=== PATIENT | female | born 1940 | race Caucasian/White ===

== ENCOUNTER 2017-11-24 01:56 | Inpatient (IN) ==
[2017-11-24] MEDS ORDERED: Ondansetron ODT 4 MG TAB.RAPDIS SL PRN (03:20)
[2017-11-24] MEDS ORDERED: Naloxone 0.4 MG/ML INJ IVP PRN (03:20)
[2017-11-24 03:53] LABS: Basophils % 0.1 %; Hemoglobin 11.1 g/dL (11.5-15.4); Immature Granulocytes % 0.5 % (0-4); Lymphocytes # 0.5 K/mcL (0.6-4.6); Lymphocytes % 3.4 %; Mean Corpuscular HGB Conc 34.7 g/dL (31.6-35.5); Mean Corpuscular Hemoglobin 31.4 pg (28.0-33.3); Mean Corpuscular Volume 90.4 fL (83.0-100.0); Mean Platelet Volume 9.8 fL (9.4-12.4); Monocytes # 0.6 K/mcL (0.0-1.3); Monocytes % 4.6 %; Neutrophils # 12.3 K/mcL (1.6-8.9); Platelet Count 227 K/mcL (140-400); Red Blood Count 3.54 M/mcL (3.82-4.97); Segmented Neutrophils % 91.4 %
--- NOTE | 2017-11-24 03:59 | Internal Med History&Physical ---
<Galen Gruber - Last Filed: 11/24/17 06:06> Date of Encounter: 11/24/17 Time of Encounter: 02:00 Assessment and Plan (1) Elevated troponin I level Current visit: Yes Status: Acute NSTEMI vs renal disease Cardiology consulted Patient started on heparin drip Cardiac Monitoring and pulse oximetry Echo ordered Troponin downtrending compared with [place] (0.192 to 0.170) Will monitor (2) CHF (congestive heart failure) Current visit: Yes Status: Acute Elevated BNP Echo Ordered Home lasix restarted Qualifiers: Congestive heart failure type: unspecified Congestive heart failure chronicity: unspecified Qualified Code(s): I50.9 - Heart failure, unspecified (3) HTN (hypertension) Current visit: Yes Status: Acute Controlled Continue home medications Qualifiers: Hypertension type: essential hypertension Qualified Code(s): I10 - Essential (primary) hypertension (4) HLD (hyperlipidemia) Current visit: Yes Status: Acute Patient with documented adverse reaction to statins Qualifiers: Hyperlipidemia type: unspecified Qualified Code(s): E78.5 - Hyperlipidemia , unspecified (5) GERD (gastroesophageal reflux disease) Current visit: Yes Status: Acute Stable Continue home medication Qualifiers: Esophagitis presence: esophagitis presence not specified Qualified Code(s) : K21.9 - Gastro-esophageal reflux disease without esophagitis (6) COPD (chronic obstructive pulmonary disease) Current visit: Yes Status: Acute Stable No signs of acute exacerbation Will monitor Qualifiers: COPD type: unspecified COPD Qualified Code(s): J44.9 - Chronic obstructive pulmonary disease, unspecified (7) History of MN (myocardial infarction) Current visit: Yes Status: Acute (8) S/P coronary artery stent placement Current visit: Yes Status: Acute (9) Tobacco use disorder, moderate, in sustained remission Current visit: Yes Status: Acute Quit smoking in 2002 (10) Leukocytosis Current visit: Yes Status: Acute Mild elevation is downtrending 15.0 at [place] last night 13.5 this morning No other signs of infection currently, likely reactive Will monitor Qualifiers: Leukocytosis type: unspecified Qualified Code(s): D72.829 - Elevated white blood cell count, unspecified (11) Elevated serum creatinine Current visit: Yes Status: Acute Patient admits to recent "kidney problems," but is unsure of details further than this We do not have past values of Cr to compare against (12) DVT prophylaxis Current visit: Yes Status: Acute On Heparin Drip Internal Medicine - H&P: HPI Chief complaint: Shortness of breath Admitted From: Hospital to Hospital Transfer Plans for Post Hospital Care: Home History of present illness: Ms. Coleman is a 77 year old female who presented to [facility] with "maybe 2 weeks" of increasing shortness of breath. The patient, though oriented x3, is a poor historian and admits that she is unsure of what made her present to the ER at [facility] in the first place. She denies any chest, jaw, or arm pain. She denies palpitations. She endorses diaphoresis. She admits a cough productive of a "thick, white" sputum. She denies fever and chills. The patient's tab cutter is Dr. Carr, and when the patient was found to have an elevated troponin at [facility], she transfered to [facility]. Other lab findings from [facility] include: Na 129, K 2.6, Cl 83, HCO3 34, BUN 17.0, Cr 1.34, Glu 146 WBC 15.0, Hgb 12.6, Plt 213 Lactic Acid 1.8 Troponin 0.196 BNP 7230 CXR revealed cardiomegaly with pulmonary edema. Past medical history significant for two MIs in the past 5 years treated with PCI, HTN, HLD, COPD, asthma, hypothyroidism, and GERD. Past Med Surg Social Fam HX - Past Medical History Medical history: asthma, COPD, GERD, hyperlipidemia, hypertension, myocardial infarction, thyroid disease Psychiatric history: no psych history - Past Surgical History Surgical History: appendectomy, cholecystectomy, hysterectomy - Social History Smoking Status: Former smoker Smokeless Tobacco Status: No Alcohol use: none, rarely Drug use: none Internal Medicine - H&P: Meds Albuterol Sulfate [Proair Hfa] 2 puff DAILY 11/24/17 [History] Allopurinol 300 mg PO DAILY 11/24/17 [History] Amlodipine Besylate [Amlodipine Besylate] 5 mg PO DAILY 11/24/17 [History] Aspirin [Lo-Dose Aspirin EC] 81 mg PO DAILY 11/24/17 [History] Cetirizine HCl [Zyrtec] 10 mg PO DAILY 11/24/17 [History] Ciprofloxacin [Cipro] 500 mg PO 11/24/17 [History] Furosemide [Lasix] 40 mg PO BID 11/24/17 [History] Levothyroxine [Synthroid] 100 mcg PO DAILY 11/24/17 [History] Lutein/Zeaxanthin [Lutein-Zeaxanthin 25-5 mg Sfgl] 15 mg PO DAILY 11/24/17 [ History] Nitroglycerin [Nitrostat] 0.4 mg PO PRN PRN 11/24/17 [History] Potassium Chloride [Klor-Con 10] 10 mg PO DAILY 11/24/17 [History] Telmisartan [Micardis] 80 mg PO 11/24/17 [History] 3 Allergy/AdvReac Type Severity Reaction Status Date / Time [id number] Reductase AdvReac Muscle Pain Verified 06/26/17 13:18 Inhibitor [Statins] All Systems PM: A 10-system review of systems was performed and is negative for pertinent findings except as documented above in the HPI. Review of systems: As per HPI - Constitutional Vitals: Temp Pulse Resp BP Pulse Ox 98.6 F 73 18 126/79 92 11/24/17 02:06 11/24/17 02:06 11/24/17 02:06 11/24/17 02:06 11/24/17 03:30 General appearance: Present: cooperative, A&O X 3, pleasant, no acute distress, obese, answers questions appropriately - Head Head exam: Present: atraumatic, normal inspection, normocephalic - ENT ENT exam: Present: mucous membranes dry - Neck Neck exam general surgery: Present: trachea midline - Respiratory Respiratory exam: Present: rales. Absent: accessory muscle use, respiratory distress, rhonchi, wheezes - Cardiovascular Cardiovascular exam: Present: RRR, +S1, +S2 - GI/Abdominal GI/Abdominal exam: Present: soft, no peritoneal signs - Extremities Exam Extremities exam: Present: pedal edema (trace) - Neurological Exam Neurological exam: Present: alert, oriented X3 - Psychiatric Psychiatric exam: Present: normal affect, normal mood. Absent: agitated, anxious - Skin Skin exam: Present: dry, warm Internal Med - H&P Results - Labs CBC & Chem 7: 11/24/17 03:36 11/24/17 03:36 <Priya Shah - Last Filed: 01/29/18 06:35> Date of Encounter: 11/24/17 Time of Encounter: 03:00 Internal Medicine - H&P: HPI History of present illness: Ms. Coleman is a 77 year old female All Systems PM: A 10-system review of systems was performed and is negative for pertinent findings except as documented above in the HPI. - Constitutional Vitals: Temp Pulse Resp BP Pulse Ox 98.6 F 73 18 126/79 92 11/24/17 02:06 11/24/17 02:06 11/24/17 02:06 11/24/17 02:06 11/24/17 03:30 Internal Med - H&P Results - Labs CBC & Chem 7: 11/24/17 03:36 11/24/17 03:36 Labs: Short CBC 11/24/17 Range/Units 03:36 WBC 13.5 H (4.3-11.1) K/mcL Hgb 11.1 L (11.5-15.4) g/dL Hct 32.0 L (35.3-44.9) % Plt Count 227 (140-400) K/mcL Neutrophils # 12.3 H (1.6-8.9) K/mcL BMP 11/24/17 03:36 Sodium 130 L Potassium 2.8 L Chloride 89 L Carbon Dioxide 27 BUN 18 Creatinine 1.27 H Glucose 196 H Calcium 8.8 Cardiac Enzymes 11/24/17 Range/Units 03:36 Troponin I 0.17 H* (< 0.04) ng/mL - Attending Attestation I examined this patient and my medical decision-making was reviewed with the Resident Physician, Galen Gruber. I agree with the documented findings, disposition and treatment plan as described with any changes set forth below. 77-year-old female patient with history of hypertension, congestive heart failure, hyperlipidemia, gastroesophageal reflux disease, COPD and coronary artery disease presented to the ER at [facility] with complaints of shortness of breath that have been going on for about 2 weeks with progressive worsening. She has also noticed increased swelling in her arms and legs. She denies any chest pain or palpitations. She does have cough that is productive of whitish sputum. On examination, patient has mild bilateral lower extremity edema. She is hypoxic. Normal S1 and S2. Bilateral crackles present. Labs show sodium of 129, potassium of 2.6, WBC of 15 and BNP of 7230. Creatinine of 1.34. Troponin of 0.19. Acute hypoxic respiratory failure: Patient with hypoxia requiring O2 supplementation. We will treat with O2 supplementation and treat underlying conditions. Acute on chronic CHF: We will get 2-D echocardiogram. Patient has elevated BNP and bilateral pedal edema. Will treat with intravenous Lasix. Fluid restriction and monitor vital signs closely. Daily weights. Elevated troponin: Trend troponins. Consult cardiology. We will follow their recommendations. Patient may require treatment for possible non-ST elevation MN depending on her troponin trend. COPD: We will treat with bronchodilators as needed. Chronic kidney disease stage III: Given acute CHF and use of Lasix expect worsening of renal function. Will monitor closely. Hyponatremia: Unknown baseline. Will monitor for now. Hypokalemia: We will replace intravenously and orally. Hypothyroidism: Will check TSH level.
[2017-11-24] MEDS ORDERED: Ipratropium/Albuterol Neb 3 ML IH PRN (04:21)
[2017-11-24 05:17] LABS: Calcium 8.8 mg/dL (8.6-10.3); Potassium 2.8 mEq/L (3.5-5.1)
[2017-11-24] MEDS ORDERED: *HR* Heparin 5,000 UNIT/ML VIAL IVP PRN ×2 (05:38)
[2017-11-24] MEDS ORDERED: *HR* Heparin 5,000 UNIT/ML VIAL IVP ONE (05:38)
[2017-11-24] MEDS ORDERED: Heparin 25,000 UNIT/500 ML D5W 25,000 UNIT/500 ML BAG IVC SCH (05:45)
[2017-11-24] MEDS ORDERED: Potassium Chloride 40 MEQ, Lidocaine 1% 2 ML in D5% in Water 500 ML IVPB ONE (06:32)
[2017-11-24 06:39] LABS: Hematocrit 31.7 % (35.3-44.9); Hemoglobin 10.7 g/dL (11.5-15.4); Mean Corpuscular HGB Conc 33.8 g/dL (31.6-35.5); Mean Corpuscular Hemoglobin 30.7 pg (28.0-33.3); Mean Corpuscular Volume 91.1 fL (83.0-100.0); Mean Platelet Volume 10.1 fL (9.4-12.4); Platelet Count 244 K/mcL (140-400); Red Blood Count 3.48 M/mcL (3.82-4.97)
[2017-11-24 07:03] LABS: INR 1.4; Prothrombin Time 14.9 Seconds (9.4-12.1)
[2017-11-24 07:06] LABS: Activated Partial Thrombo Time 26.9 Seconds (26.0-36.0)
[2017-11-24] MEDS: Furosemide 40 MG/4 ML VIAL IVP SCH ×2 (08:10→16:04)
[2017-11-24] MEDS: Loratadine 10 MG TABLET PO SCH (08:10)
[2017-11-24] MEDS: Aspirin Enteric Coated 81 MG Tablet PO SCH (08:10)
[2017-11-24] MEDS: Ipratropium/Albuterol Neb 3 ML IH SCH ×4 (08:12→20:15)
[2017-11-24] MEDS: amLODIPine 5 MG TABLET PO SCH (08:18)
--- NOTE | 2017-11-24 10:17 | Cardiology Consult Note ---
Date of Encounter: 11/24/17 Time of Encounter: 10:06 Assessment and Plan (1) Elevated troponin I level Current Visit: Yes Status: Acute Patient's initial troponin 0.17, second set 0.12 at 9 AM this morning. -Likely demand ischemia secondary to fluid status. Troponins flat and adymic. -Follow-up echocardiogram. -Continue to trend troponins. -Medical records requested from [facility]. (2) Acute exacerbation of CHF (congestive heart failure) Current Visit: Yes Status: Acute Awaiting echocardiogram. -Continue IV diuresis, MP, daily weights, and fluid restriction. -[facility] medical record request. Qualifiers: Congestive heart failure type: unspecified Qualified Code(s): I50.9 - Heart failure, unspecified (3) History of [place] (myocardial infarction) Current Visit: Yes Status: Acute Patient with h/o [address] Carr. Has had to cancel last several apointments. -[facility] 08/31/2014- circuflex stent ARY -[facility] 01/13/2014- obtuse marginal DEC -[employer] with stent of left subclavian artery stenosis 07/15/2015 -Left side carotid 2005, RCA DEC 10/27/2013 -Continue to optimize medical management -[facility] medical record request. (4) S/P coronary artery stent placement Current Visit: Yes Status: Acute -[facility] 08/31/2014- circuflex stent ARY -[facility] 01/13/2014- obtuse marginal DEC -Continue to optimize medical management. -[facility] medical record request. Discussion w patient/family: The assessment and plan as outlined above was discussed with the patient and/or family members who expressed understanding and agreement. All questions were answered. Thank you for involving us in the care of your patient. Please call with any questions. History of Present Illness Consult date: 11/24/17 Requesting physician: Priya Shah Consult reason: Elevated troponin/acute exacerbation CHF Chief complaint: Dyspnea History of present illness: Ms. Coleman is a 77 year old female with PMHx of HTN, CHF, HLD, GERD, COPD, thyroid disease, and CAD who presented to [facility] with complaints of SOB for 2 weeks, right arm swelling, and decreased appetite for 4 days. She reported orthopnea and worsening of her shortness of breath. She denied chest pain, chest pressure, arm or neck pain, nausea, yet reported mild diaphoresis. She also reported a cough which was productive of white sputum. Upon arrival to [facility], she was hypoxic with mild bilateral lower extremity edema. She was found to have bilateral crackles. She was found to by hyponatremic, hypokalemic, with a WBC of 15 and BNP of 7230, creatinine of 1.34, and troponin of 0.19. Patient was initially started her on supplemental oxygen, IV diuresis, fluid restriction , and bronchodilators. Electrolyte replacement was initiated. Cardiology was consulted as well as 2-D echocardiogram with trending of troponins. This morning, patient is resting comfortably in no acute distress with her at the bedside. She states she is a patient of Dr. Carr and reports having multiple stents placed in her heart in the past. She corroborates use of home nitrates, beta ginna, lasix, ASA, amlodipine, and telmisartan. She also reports non-compliance with statins secondary to myalgias. Past Med Surg Social Fam HX - Past Medical History Attestation: Yes The following information was validated with the patient. Source: patient, old records reviewed Medical history: asthma, COPD, GERD, hyperlipidemia, hypertension, myocardial infarction, thyroid disease Psychiatric history: no psych history - Past Surgical History Surgical History: appendectomy, cholecystectomy, hysterectomy - Social History Smoking Status: Former smoker Smokeless Tobacco Status: No Alcohol use: none, rarely Drug use: none Medications and Allergies Albuterol Sulfate [Proair Hfa] 2 puff DAILY 11/24/17 [History] Allopurinol [Zyloprim] 300 mg PO DAILY 11/24/17 [History] Amlodipine Besylate [Amlodipine Besylate] 5 mg PO DAILY 11/24/17 [History] Aspirin [Lo-Dose Aspirin EC] 81 mg PO DAILY 11/24/17 [History] Cetirizine HCl [Zyrtec] 10 mg PO DAILY 11/24/17 [History] Ciprofloxacin [Cipro] 500 mg PO 11/24/17 [History] Furosemide [Lasix] 40 mg PO BID 11/24/17 [History] Levothyroxine [Synthroid] 100 mcg PO DAILY 11/24/17 [History] Lutein/Zeaxanthin [Lutein-Zeaxanthin 25-5 mg Sfgl] 15 mg PO DAILY 11/24/17 [ History] Metoprolol Tartrate [Lopressor] 50 mg PO DAILY 11/24/17 [History] Nitroglycerin [Nitrostat] 0.4 mg PO PRN PRN 11/24/17 [History] Potassium Chloride [Klor-Con 10] 10 mg PO DAILY 11/24/17 [History] Telmisartan [Micardis] 80 mg PO DAILY 11/24/17 [History] 3 Allergy/AdvReac Type Severity Reaction Status Date / Time Gawneyz-Oss-Sza Reductase AdvReac Muscle Pain Verified 06/26/17 13:18 Inhibitor [Statins] All Systems Review: A 10-system review of systems was performed and is negative for pertinent findings except as documented above in the HPI. - Constitutional Constitutional: anorexia (4 ays), no fever(s), no frequent falls, no headache(s) , no stops breathing during sleep - Cardiovascular Cardiovascular: diaphoresis, dyspnea at rest, dyspnea on exertion, leg edema, no chest pain at rest, no chest pain with exertion, no claudication, no irregular heart rhythm, no radiating jaw, neck or arm pain, no lightheadedness, no palpitations, no paroxysmal nocturnal dyspnea, no rapid heart rate - Respiratory Respiratory: cough, other (sputum) - Gastrointestinal Gastrointestinal: no abdominal pain, no coffee ground emesis, no constipation, no diarrhea, no hematemesis, no hematochezia, no melena, no nausea - Genitourinary Genitourinary: no dysuria - Integumentary Integumentary: no erythema - Neurological Neurological: no dizziness, no focal weakness Physical Examination Vital Signs, Last 4 Hours Temp Pulse Resp BP Pulse Ox 11/24/17 08:13 14 96 11/24/17 06:44 97.8 F 70 14 113/50 96 General: Conversant, No Apparent Distress HEENT: Atraumatic, Normocephaly, Mucus Membranes Moist Neck: No JVD, Normal carotid pulses Cardiac: Reg Rate and Rhythm, Normal S1 and S2, No Murmur Lungs: Other (moderate crackles bilaterally) Neuro: Alert and responsive, No focal deficits noted Abdomen: Soft, Non-Tender Skin: No rashes noted on visualized skin Musculoskeletal: No Chest Wall Tenderness Extremities: No Clubbing, No Cyanosis, No Edema, Normal Pulses Results 11/24/17 05:47 11/24/17 03:36 Lab Results 11/24/17 11/24/1718 03:36 03:36 03:36 WBC 13.5 H Hgb 11.1 L Hct 32.0 L Plt Count 227 INR APTT Sodium 130 L Potassium 2.8 L Chloride 89 L Carbon Dioxide 27 BUN 18 Creatinine 1.27 H Glucose 196 H Calcium 8.8 Troponin I 0.17 H* TSH 11/24/17 11/24/17 11/24/17 03:36 05:47 05:47 WBC 10.7 Hgb 10.7 L Hct 31.7 L Plt Count 244 INR 1.4 APTT 26.9 Sodium Potassium Chloride Carbon Dioxide BUN Creatinine Glucose Calcium Troponin I TSH 0.865 11/24/17 09:08 WBC Hgb Hct Plt Count INR APTT Sodium Potassium Chloride Carbon Dioxide BUN Creatinine Glucose Calcium Troponin I 0.12 H* TSH Consult Discharge Plan - Plan Referrals: Ramy Tellez DO [Primary Care Provider] -
--- NOTE | 2017-11-24 23:12 | Event Note ---
Date of Encounter: 11/24/17 Time of Encounter: 13:09 Patient transferred from [place] for dyspnea, increased troponin and cough. History of [place] and hypertension. Patient admitted and started on heparin drip with cardiac monitoring. Currently she has no complaints for me. Denies chest pain. Has c/o SOB right now, slightly improved. VS: reviewed, on 2 L nasal cannula unremarkable. Physical exam: no acute distress, there are rales at both lung bases with scattered wheezes throughout. No extremity edema. Labs reviewed: troponin 0.19 now 0.17, Sodium 129 now 120, BNP 7,000, WBC now wnl at 10. Potassium very low at 2.8. 1) Elevated troponin level: Will discontinue heparin drip per Cardiology recs F/U TTE 2) CHF continue diuresis, creatinine monitoring, I/Os, daily weights. Records from [facility] office to be obtained. 3) Hypokalemia Currently getting IV Lasix, getting replaced with IV and now will repalce with PO and recheck. Also check mag level.
[2017-11-24] MEDS: Melatonin 3 MG TABLET PO SCH (23:47)
[2017-11-25] MEDS: Ipratropium/Albuterol Neb 3 ML IH SCH ×6 (00:08→21:16)
[2017-11-25 05:46] LABS: Basophils % 0.1 %; Hematocrit 29.1 % (35.3-44.9); Hemoglobin 10.2 g/dL (11.5-15.4); Immature Granulocytes % 0.6 % (0-4); Lymphocytes # 0.9 K/mcL (0.6-4.6); Lymphocytes % 4.2 %; Mean Corpuscular HGB Conc 35.1 g/dL (31.6-35.5); Mean Corpuscular Volume 88.4 fL (83.0-100.0); Mean Platelet Volume 10.2 fL (9.4-12.4); Monocytes % 7.2 %; Neutrophils # 18.8 K/mcL (1.6-8.9); Platelet Count 263 K/mcL (140-400); Red Blood Count 3.29 M/mcL (3.82-4.97); Red Cell Distribution Width 13.6 % (11.5-14.5); Segmented Neutrophils % 87.9 %
[2017-11-25 05:51] LABS: Monocytes # 1.5 K/mcL (0.0-1.3)
[2017-11-25 06:14] LABS: Calcium 8.5 mg/dL (8.6-10.3); Potassium 3.6 mEq/L (3.5-5.1)
--- NOTE | 2017-11-25 08:22 | Cardiology Progress Note ---
Date of Encounter: 11/25/17 Time of Encounter: 08:20 Assessment and Plan (1) Elevated troponin I level Current Visit: Yes Status: Acute [facility], [facility].12 yester[facility]. -Likely demand ischemia secondary to fluid status or renal function. Troponins flat and adymic. -Follow-up echocardiogram. -If no changes in echocardiogram, will discuss with Dr. Lozano if cardiology is to sign off. (2) Acute exacerbation of CHF (congestive heart failure) Current Visit: Yes Status: Acute Awaiting echocardiogram. -Continue IV diuresis, I&O, daily weights, and fluid restriction. -Patient with considerable CAD history. Will compare this history obtained from [facility] to echocardiogram here once results are available. Qualifiers: Congestive heart failure type: unspecified Qualified Code(s): I50.9 - Heart failure, unspecified (3) History of [place] (myocardial infarction) Current Visit: Yes Status: Acute Patient with h/o [address] Carr. Has had to cancel last several apointments. -[facility] 11/05/2013- RCA-ARY- moderate diffuse CAD, EF 55% -[facility] 01/13/2014- obtuse marginal ARY, circulflex ARY -[facility] 08/31/2014-moderate disease mid LAD [id number]%), medical treatment recommendations and risk factor modification -[facility] 06/16/2016- moderate stenosis distal LAD, no change from previous studies, EF 55% -[employer] with stent of left subclavian artery stenosis 03/14/2015 -Left side carotid 2005, RCA ARY 10/27/2013 -Continue to optimize medical management (4) S/P coronary artery stent placement Current Visit: Yes Status: Acute -[facility] 11/05/2013- RCA-ARY- moderate diffuse CAD, EF 55% -[facility] 01/13/2014- obtuse marginal ARY, circulflex ARY -[facility] 08/31/2014-moderate disease mid LAD [id number]%), medical treatment recommendations and risk factor modification -[facility] 06/16/2016- moderate stenosis distal LAD, no change from previous studies, EF 55% -Continue to optimize medical management. Discussion w patient/family: The assessment and plan as outlined above was discussed with the patient and/or family members who expressed understanding and agreement. All questions were answered. Thank you for involving us in the care of your patient. Please call with any questions. Subjective Principal diagnosis: Acute exacerbation of CHF Interval history: Ms. Coleman is a 77 yo female with PMHx of HTN, CHF, HLD, GERD, COPD, thyroid disease, and CAD who is currently being treated for acute exacerbation of CHF, hospital day 2. This morning, patient was short of breath, but just moved from chair to bed. Her vitals have remained stable overnight. She states she feels chest pressure which she now states she has had for 4 days. Patient is easily confused, poor historian. 4 liters NC. Objective Vital Signs, Last 4 Hours Temp Pulse Resp BP Pulse Ox 11/25/17 07:04 24 96 11/25/17 06:30 97.8 F 92 15 130/68 94 General: Conversant, No Apparent Distress HEENT: Atraumatic, Normocephaly, Mucus Membranes Moist Cardiac: Reg Rate and Rhythm, Normal S1 and S2 Lungs: Other (wheezes bilaterally, bilateral crackles at bases) Neuro: Alert and responsive, No focal deficits noted Abdomen: Soft, Non-Tender Skin: No rashes noted on visualized skin Musculoskeletal: No Chest Wall Tenderness Extremities: No Clubbing, No Cyanosis, No Edema Results 11/25/17 04:56 11/25/17 04:56 Lab Results 11/24/17 11/24/17 11/24/17 09:08 13:50 22:00 WBC Hgb Hct Plt Count APTT 47.0 H D 51.9 H Sodium Potassium Chloride Carbon Dioxide BUN Creatinine Glucose Calcium Troponin I 0.12 H* 11/25/17 11/25/17 04:56 04:56 WBC 21.4 H D Hgb 10.2 L Hct 29.1 L Plt Count 263 APTT Sodium 123 L Potassium 3.6 Chloride 87 L Carbon Dioxide 26 BUN 31 H Creatinine 1.41 H Glucose 189 H Calcium 8.5 L Troponin I - VTE Documentation of Mechanical Device: Graduated compression elastic hosiery Consult Discharge Plan - Plan Referrals: Ramy Tellez DO [Primary Care Provider] -
[2017-11-25] MEDS: Aspirin Enteric Coated 81 MG Tablet PO SCH (08:42)
[2017-11-25] MEDS: Loratadine 10 MG TABLET PO SCH (08:42)
[2017-11-25] MEDS: amLODIPine 5 MG TABLET PO SCH (08:42)
[2017-11-25] MEDS: Furosemide 40 MG/4 ML VIAL IVP SCH (08:43)
[2017-11-25] MEDS ORDERED: Acetaminophen 325 MG TABLET PO ONE (11:44)
[2017-11-25 14:54] LABS: Sodium, Urine 18.7 mEq/L
[2017-11-25] MEDS: Metoprolol XL (24 HR) Succ 50 MG TAB.ER.24H PO SCH (15:27)
[2017-11-25] MEDS: *HR* Heparin 5,000 UNIT/ML VIAL SQ SCH ×2 (15:27→23:19)
--- NOTE | 2017-11-25 15:31 | Internal Med Progress Note ---
Addendum entered and electronically signed by Fabio Ramsay, DO 11/25 15:55: Hyponatremia: sodium went from 130 to 123 in the setting of IV diuresis. We will hold IV Lasix switched to by mouth home dose. Patient asymptomatic continue to monitor with a.m. labs. Leukocytosis elevated WBC of 21, patient denies any fevers, chills, burning with urination, discomfort or pains.no obvious signs of infection. Will obtain urine culture with recent history of UTI. BILL: Patient demonstrates elevation in creatinine from 1.2 to 1.41, no previous creatinines to compare. Elevation in the setting of diastolic heart failure and IV diuresis. We will switch to by mouth diuresis continue to monitor with a.m. labs. Avoid nephrotoxic medications are renally dose antibiotics Original Note: <Fabio Ramsay - Last Filed: 11/25/17 15:29> Date of Encounter: 11/25/17 Time of Encounter: 09:00 - Assessment and plan (1) Diastolic dysfunction with acute on chronic heart failure Current Visit: Yes Status: Acute Assessment and plan: Patient transferred from outside facility with BNP greater than 7000, pulmonary edema, patient complains of orthopnea and dyspnea with activity increased oxygen demand requiring nasal cannula oxygen at 4 L, clinical exam demonstrates findings of volume overload. Follow up BNP 411 Echocardiogram completed 11/24/2017 Impressions: Frequent atrial ectopy. LVEF 65%. Indeterminate diastolic dysfunction. Normal right ventricular structure and function. Mild-moderate mitral regurgitation. Mild-moderate tricuspid regurgitation. Moderate pulmonary hypertension. Plan: -Tolerating weaning of oxygen, continue to wean oxygen as tolerated. - Switch to PO Lasix 40 BID - Daily weights - 2 g sodium restriction, 1.5 L fluid restrictions - Optimize cardiac medications (2) HTN (hypertension) Current Visit: Yes Status: Acute Assessment and plan: Known history of hypertension currently on amlodipine 5 mg by mouth daily, metoprolol succinate 50 mg by mouth daily with blood pressure currently controlled. - Continue current regimen monitor. Qualifiers: Hypertension type: essential hypertension Qualified Code(s): I10 - Essential (primary) hypertension (3) S/P coronary artery stent placement Current Visit: Yes Status: Acute Assessment and plan: Patient has known coronary artery disease -[facility] 11/05/2013- RCA-ARY- moderate diffuse CAD, EF 55% -[facility] 01/13/2014- obtuse marginal ARY, circulflex ARY -[facility] 08/31/2014-moderate disease mid LAD [id number]%), medical treatment recommendations and risk factor modification -[facility] 06/16/2016- moderate stenosis distal LAD, no change from previous studies, EF 55% Patient follows with Dr. Carr in the outpatient setting. (4) Elevated troponin I level Current Visit: Yes Status: Acute Assessment and plan: Troponins 0.17, 0.12, 0.41 - Significant history of ACS with multiple stents in the past. Cardiology was following, will ask to see the patient again as her troponins are trending upwards. - Patient may require LHC. (5) DVT prophylaxis Current Visit: Yes Status: Acute Assessment and plan: Subcutaneous heparin. - Subjective Interval history: Mrs. Coleman has been seeing a dietitian bedside this morning. She is sitting up in a chair tolerating breakfast denies any complaints at this time. She states that the swelling in her lower extremity has improved her breathing is improved but she still requires nasal cannula oxygen which she does not use at home. She continues to have difficulty with laying flat and says she needs to elevate the head of her better pillows behind her back. She is more short of breath with ambulation and activity. With regards to asking questions of her medical history she is a poor historian. - Constitutional Vitals: Temp Pulse Resp BP Pulse Ox 97.7 F 91 14 140/74 95 11/25/17 15:16 11/25/17 15:16 11/25/17 15:16 11/25/17 15:16 11/25/17 15:16 General appearance: Present: cooperative, A&O X 3, pleasant, no acute distress, obese, answers questions appropriately Exam: General: Patient alert, awake, oriented 3, interactive, in no acute distress HEENT: Normocephalic, atraumatic, pupils equal reactive to light, , oral mucosa moist, neck supple trachea midline no palpable lymphadenopathy, no thyromegaly. Chest: Symmetric bilateral correlating with respiratory effort, effort nonlabored. Cardiac: Tachycardia, no bruits appreciated bilateral carotids, Radial pulses 2 + bilateral, posterior tibial and dorsal pedal pulses 2+ bilateral. Respiratory: Clear to auscultation all lung watkins Abdomen: Soft, nontender, positive bowel sounds, no palpable masses appreciated on examination Extremities: Symmetric bilateral, bilateral lower extremities with trace edema patient moving all 4 extremities spontaneously. Neurologic: No focal deficits appreciated on examination. Face symmetric, muscle strength symmetric bilateral upper and lower extremities. Internal Medicine: Result - Labs CBC & Chem 7: 11/25/17 04:56 11/25/17 04:56 Labs: Short CBC 11/25/17 Range/Units 04:56 WBC 21.4 H D (4.3-11.1) K/mcL Hgb 10.2 L (11.5-15.4) g/dL Hct 29.1 L (35.3-44.9) % Plt Count 263 (140-400) K/mcL Neutrophils # 18.8 H (1.6-8.9) K/mcL BMP 11/25/17 04:56 Sodium 123 L Potassium 3.6 Chloride 87 L Carbon Dioxide 26 BUN 31 H Creatinine 1.41 H Glucose 189 H Calcium 8.5 L - ABG Interpretation ABG results: PT/INR, D-dimer PT 14.9 Seconds (9.4-12.1) H 11/24/17 05:47 - Impressions Impressions Echocardiogram 11/24/17 04:22 Impressions: Frequent atrial ectopy. LVEF 65%. Indeterminate diastolic dysfunction. Normal right ventricular structure and function. Mild-moderate mitral regurgitation. Mild-moderate tricuspid regurgitation. Moderate pulmonary hypertension. Left Ventricular Wall Motion: Rest Echo Findings All wall segments showed normal motion. Findings: Study Quality * Technically adequate exam. ECG Findings * Sinus tachycardia. Left Ventricle * LVEF 65%. * Normal LV chamber size, wall thickness and function. * Indeterminate diastolic dysfunction. Valsalva was not performed. Right Ventricle * Normal right ventricular structure and function. Left Atrium * Severely dilated left atrium. Right Atrium * Normal right atrial size. Mitral Valve * Normal mitral valve structure. * No mitral stenosis. * Mild mitral annular calcification * Mild-moderate mitral regurgitation. Aortic Valve * No aortic regurgitation. * Aortic valve not well visualized. * No aortic stenosis. Tricuspid Valve * Normal tricuspid valve structure. * Mild-moderate tricuspid regurgitation. * Estimated RA pressure is 3 mmHg. * Estimated RVSP is 53 mmHg. * Moderate pulmonary hypertension. Pulmonic Valve * Pulmonic valve is not well visualized. * No pulmonic stenosis. * Trace pulmonic regurgitation. Pulmonary Artery * Pulmonary artery not well visualized. Aorta * Not well visualized. Pericardium * There is no pericardial effusion present. Interatrial Septum * No evidence of PFO by color Doppler. IVC * Normal IVC dimensions and inspiratory collapse. - VTE Documentation of Mechanical Device: Graduated compression elastic hosiery Consult Discharge Plan - Plan Referrals: Ramy Tellez DO [Primary Care Provider] - <Kayden Mcallister - Last Filed: 11/25/17 17:52> Date of Encounter: 11/25/17 - Constitutional Vitals: Temp Pulse Resp BP Pulse Ox 97.7 F 91 14 140/74 95 11/25/17 15:16 11/25/17 15:16 11/25/17 15:16 11/25/17 15:16 11/25/17 15:16 Internal Medicine: Result - Labs CBC & Chem 7: 11/25/17 04:56 11/25/17 04:56 Labs: Short CBC 11/25/17 Range/Units 04:56 WBC 21.4 H D (4.3-11.1) K/mcL Hgb 10.2 L (11.5-15.4) g/dL Hct 29.1 L (35.3-44.9) % Plt Count 263 (140-400) K/mcL Neutrophils # 18.8 H (1.6-8.9) K/mcL BMP 11/25/17 04:56 Sodium 123 L Potassium 3.6 Chloride 87 L Carbon Dioxide 26 BUN 31 H Creatinine 1.41 H Glucose 189 H Calcium 8.5 L Cardiac Enzymes 11/25/17 Range/Units 15:09 Troponin I 0.41 H* (< 0.04) ng/mL Urine 11/25/17 Range/Units 15:56 Urine Color Yellow (Yellow) Urine Clarity Clear (Clear) Urine pH 7.0 (5.0-8.0) pH Units Ur Specific [place] 1.005 L (1.010-1.025) Urine Protein 100 H (Neg-Trace) mg/dL Urine Glucose (UA) Normal (Normal) mg/dL - ABG Interpretation ABG results: PT/INR, D-dimer PT 14.9 Seconds (9.4-12.1) H 11/24/17 05:47 - Impressions Impressions Echocardiogram 11/24/17 04:22 Impressions: Frequent atrial ectopy. LVEF 65%. Indeterminate diastolic dysfunction. Normal right ventricular structure and function. Mild-moderate mitral regurgitation. Mild-moderate tricuspid regurgitation. Moderate pulmonary hypertension. Left Ventricular Wall Motion: Rest Echo Findings All wall segments showed normal motion. Findings: Study Quality * Technically adequate exam. ECG Findings * Sinus tachycardia. Left Ventricle * LVEF 65%. * Normal LV chamber size, wall thickness and function. * Indeterminate diastolic dysfunction. Valsalva was not performed. Right Ventricle * Normal right ventricular structure and function. Left Atrium * Severely dilated left atrium. Right Atrium * Normal right atrial size. Mitral Valve * Normal mitral valve structure. * No mitral stenosis. * Mild mitral annular calcification * Mild-moderate mitral regurgitation. Aortic Valve * No aortic regurgitation. * Aortic valve not well visualized. * No aortic stenosis. Tricuspid Valve * Normal tricuspid valve structure. * Mild-moderate tricuspid regurgitation. * Estimated RA pressure is 3 mmHg. * Estimated RVSP is 53 mmHg. * Moderate pulmonary hypertension. Pulmonic Valve * Pulmonic valve is not well visualized. * No pulmonic stenosis. * Trace pulmonic regurgitation. Pulmonary Artery * Pulmonary artery not well visualized. Aorta * Not well visualized. Pericardium * There is no pericardial effusion present. Interatrial Septum * No evidence of PFO by color Doppler. IVC * Normal IVC dimensions and inspiratory collapse. - Attending Attestation I examined this patient and my medical decision-making was reviewed with the Resident Physician. I agree with the documented findings, disposition and treatment plan as described except to the extent set forth below. 77/female Admitted with worsening shortness of breath. Worsening troponin. Cardiology on the board. Updated new troponin/EKG findings. We will follow the recommendations.
[2017-11-25] MEDS ORDERED: Furosemide 40 MG TABLET PO SCH (17:00)
[2017-11-25 17:09] LABS: Bilirubin,Urine Negative (Negative); Blood,Urine Moderate (Negative); Clarity,Urine Clear (Clear); Color,Urine Yellow (Yellow); Glucose,Urine (UA) Normal (Normal); Ketones,Urine Negative (Negative); Leukocyte Esterase,Urine Negative (Negative); Nitrite,Urine Negative (Negative); Protein,Urine 100 mg/dL (Neg-Trace); Specific Gravity,Urine 1.005 (1.010-1.025); Urobilinogen,Urine Normal (Normal)
[2017-11-25 17:10] LABS: Bacteria,Urine None Seen per hpf (None-Few); Hyaline Casts,Urine None Seen per lpf (None-Few); Squamous Epithelial Cell,Urine Many per lpf (None-Few); WBC,Urine 0-3 per hpf (0-3)
[2017-11-25] MEDS ORDERED: *HR* HYDROcodone/Acet 5/325 mg TABLET PO PRN (17:41)
[2017-11-25] MEDS: Melatonin 3 MG TABLET PO SCH (20:34)
[2017-11-26] MEDS: Ipratropium/Albuterol Neb 3 ML IH SCH ×6 (00:36→20:01)
[2017-11-26] MEDS ORDERED: Furosemide 20 MG/2 ML VIAL IVP ONE (01:30)
[2017-11-26] MEDS ORDERED: Levalbuterol Neb 0.63 MG/3 ML IH ONE (01:35)
[2017-11-26] MEDS ORDERED: Furosemide 40 MG/4 ML VIAL IVP ONE (02:31)
[2017-11-26 04:23] LABS: Hematocrit 35.1 % (35.3-44.9); Mean Corpuscular HGB Conc 34.2 g/dL (31.6-35.5); Mean Corpuscular Hemoglobin 30.4 pg (28.0-33.3); Mean Corpuscular Volume 88.9 fL (83.0-100.0); Mean Platelet Volume 10.4 fL (9.4-12.4); Platelet Count 336 K/mcL (140-400); Red Blood Count 3.95 M/mcL (3.82-4.97); Red Cell Distribution Width 13.6 % (11.5-14.5); Segmented Neutrophils % 84.8 %
[2017-11-26 04:24] LABS: Basophils % 0.1 %; Eosinophils # 0.1 K/mcL (0.0-0.6); Eosinophils % 0.4 %; Immature Granulocytes % 0.6 % (0-4); Lymphocytes % 5.3 %; Monocytes # 1.6 K/mcL (0.0-1.3); Monocytes % 8.8 %; Neutrophils # 15.7 K/mcL (1.6-8.9)
[2017-11-26] MEDS ORDERED: *HR* LORazepam 2 MG/ML VIAL IVP ONE (04:47)
[2017-11-26] MEDS ORDERED: OXYCODONE Oral CONC 10 MG/0.5 ML ORAL.SYG SL PRN (04:50)
[2017-11-26 05:01] LABS: Albumin 3.6 g/dL (3.5-5.7); Albumin/Globulin Ratio 1.4 (1.1-2.2); Bilirubin,Total 0.8 mg/dL (0.3-1.0); Calcium 9.3 mg/dL (8.6-10.3); Globulin 2.6 g/dL (2.4-3.5); Total Protein 6.2 g/dL (6.4-8.9)
[2017-11-26] MEDS: *HR* Heparin 5,000 UNIT/ML VIAL SQ SCH ×3 (05:07→21:46)
[2017-11-26 08:56] LABS: ABG Base Excess 3 mEq/L (-2 to 3); ABG HCO3 27 mEq/L (21-27); ABG Oxygen Saturation 94 % (95-98); ABG PCO2 41 mmHg (35-45); ABG PH 7.43 pH Units (7.32-7.45); ABG PO2 69 mmHg (85-104); ABG TCO2 29 mEq/L (20-26); Blood Gas PEEP 6 cm H2O; Blood Gas Pressure Support 12 cm H2O; Blood Gas Respiration Rate 8
[2017-11-26] MEDS ORDERED: Vancomycin 1,250 MG in D5% in Water 250 ML IVPB ONE (09:00)
--- NOTE | 2017-11-26 09:09 | Internal Med Progress Note ---
<Fabio Ramsay Bernabe - Last Filed: 11/26/17 11:17> Date of Encounter: 11/26/17 Time of Encounter: 09:05 - Assessment and plan (1) Acute and chronic respiratory failure Current Visit: Yes Status: Acute Assessment and plan: Miss Coleman 77-year-old female admitted with diastolic heart failure exacerbation, fluid overload requiring nasal cannula oxygen decompensated respiratory tejeda overnight with worsening mental status requiring BiPAP. Mental status still altered patient is also having fevers of temp 101.6, elevated WBC. She currently meets SIRS criteria source suspect is potential pneumonia, will complete influenza swab PCR and possible chest CT as she has a fair amount of pulmonary edema which maybe masking a infiltration on chest x- ray. ABG: PH 7.43, PCO2 41, PO2 69, bicarbonate 27, oxygen saturation 94% - after 2 hours of BiPAP - Respiratory infectious panel, Legionella urine antigen, broad-spectrum antibiotics including vancomycin, Zosyn, Levaquin renally dosed Plan: - Continue BiPAP with plans to wean the nasal cannula oxygen - Continue IV Lasix to treat volume overload - Continue Bains catheter for strict intake and output monitoring - Continue breathing treatments - We will discuss with pulmonology Qualifiers: Qualified Code(s): J96.21 - Acute and chronic respiratory failure with hypoxia (2) Diastolic dysfunction with acute on chronic heart failure Current Visit: Yes Status: Acute Assessment and plan: Patient transferred from outside facility with BNP greater than 7000, pulmonary edema, patient complains of orthopnea and dyspnea with activity increased oxygen demand requiring nasal cannula oxygen at 4 L, clinical exam demonstrates findings of volume overload. Follow up BNP 411 Echocardiogram completed 11/24/2017 Impressions: Frequent atrial ectopy. LVEF 65%. Indeterminate diastolic dysfunction. Normal right ventricular structure and function. Mild-moderate mitral regurgitation. Mild-moderate tricuspid regurgitation. Moderate pulmonary hypertension. Plan: -Tolerating weaning of oxygen, continue to wean oxygen as tolerated. - IV Lasix 40 mg twice a day - Daily weights - 2 g sodium restriction, 1.5 L fluid restrictions - Optimize cardiac medications (3) HTN (hypertension) Current Visit: Yes Status: Acute Assessment and plan: Known history of hypertension currently on amlodipine 5 mg by mouth daily, metoprolol succinate 50 mg by mouth daily with blood pressure currently controlled. - Continue current regimen monitor. Qualifiers: Hypertension type: essential hypertension Qualified Code(s): I10 - Essential (primary) hypertension (4) S/P coronary artery stent placement Current Visit: Yes Status: Acute Assessment and plan: Patient has known coronary artery disease -[facility] 11/05/2013- RCA-ARY- moderate diffuse CAD, EF 55% -[facility] 01/13/2014- obtuse marginal ARY, circulflex ARY -[facility] 08/31/2014-moderate disease mid LAD 960-70%), medical treatment recommendations and risk factor modification -[facility] 06/16/2016- moderate stenosis distal LAD, no change from previous studies, EF 55% Patient follows with Dr. Carr in the outpatient setting. (5) Elevated troponin I level Current Visit: Yes Status: Acute Assessment and plan: Troponins 0.17, 0.12, 0.41 -> 0.46 - Significant history of ACS with multiple stents in the past. - Discussed with Cardiology regarding elevated troponin levels and repeated EKG with no acute changes - Cardiology recommended holding off Heparin drip at this time. - CT chest/abd/pelvis without contrast. - Continue to optimize cardiac medications, patient has an allergy to Statins. (6) Hyponatremia Current Visit: Yes Status: Acute Assessment and plan: Hyponatremia: sodium 124 in the setting of IV diuresis and acute illness. 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 (7) Leukocytosis Current Visit: Yes Status: Acute Assessment and plan: Leukocytosis elevated WBC of 18, patient denied any fevers, chills, burning with urination, discomfort or pains.no obvious signs of infection. - Urinalysis was clean no signs of UTI - We will obtain chest CT noncontrast, abdominal pelvis CT noncontrast - Broad spectrum antibiotics Qualifiers: Leukocytosis type: unspecified Qualified Code(s): D72.829 - Elevated white blood cell count, unspecified (8) Acute kidney failure Current Visit: Yes Status: Acute Assessment and plan: BILL: Patient demonstrates elevation in creatinine 1.31, no previous creatinines ( previous admissions) to compare. Elevation in the setting of diastolic heart failure and IV diuresis. - Avoid nephrotoxic medications are renally dose antibiotics Qualifiers: Qualified Code(s): N17.9 - Acute kidney failure, unspecified (9) DVT prophylaxis Current Visit: Yes Status: Acute Assessment and plan: Subcutaneous heparin. - Subjective Interval history: Mrs. Coleman has been seeing a dietitian bedside this morning. She had acute decompensation or rest her status overnight. She required BiPAP given her acute respiratory failure. She became more altered and upon examination this morning was unable to answer questions appropriate and is alert and oriented 1. - Constitutional Vitals: Temp Pulse Resp BP Pulse Ox 101.6 F H 75 17 121/62 99 11/26/17 07:45 11/26/17 07:45 11/26/17 07:53 11/26/17 07:45 11/26/17 07:53 General appearance: Present: cooperative, A&O X 3, pleasant, no acute distress, obese, answers questions appropriately Exam: General: Patient alert, awake, oriented 1, interactive, on BiPAP, mental status altered HEENT: Normocephalic, atraumatic, pupils equal reactive to light, oral mucosa moist, neck supple trachea midline no palpable lymphadenopathy, no thyromegaly. Chest: Symmetric bilateral correlating with respiratory, tachypnea Cardiac: Tachycardia, no bruits appreciated bilateral carotids, Radial pulses 2 + bilateral, posterior tibial and dorsal pedal pulses 2+ bilateral. Respiratory: Diffuse rhonchi, diminished inspiratory expiratory breath sounds. Abdomen: Soft, nontender, positive bowel sounds, no palpable masses appreciated on examination Extremities: Symmetric bilateral, bilateral lower extremities with trace edema patient moving all 4 extremities spontaneously. Neurologic: No focal deficits appreciated on examination. Face symmetric, muscle strength symmetric bilateral upper and lower extremities. Internal Medicine: Result - Labs CBC & Chem 7: 11/26/17 04:04 11/26/17 04:04 Labs: Short CBC 11/26/17 Range/Units 04:04 WBC 18.5 H (4.3-11.1) K/mcL Hgb 12.0 D (11.5-15.4) g/dL Hct 35.1 L (35.3-44.9) % Plt Count 336 (140-400) K/mcL Neutrophils # 15.7 H (1.6-8.9) K/mcL BMP 11/26/17 04:04 Sodium 124 L Potassium 6.0 H D Chloride 91 L Carbon Dioxide 23 BUN 28 H Creatinine 1.34 H Glucose 169 H Calcium 9.3 Cardiac Enzymes 11/25/17 11/25/17 11/26/17 Range/Units 15:09 21:39 04:04 Troponin I 0.41 H* 0.44 H* 0.46 H* (< 0.04) ng/mL Liver Function 11/26/17 Range/Units 04:04 Total Bilirubin 0.8 (0.3-1.0) mg/dL AST 160 H (13-39) Units/L ALT 65 H (7-52) Units/L Alkaline Phosphatase 69 (34-104) Units/L Albumin 3.6 (3.5-5.7) g/dL Urine 11/25/17 Range/Units 15:56 Urine Color Yellow (Yellow) Urine Clarity Clear (Clear) Urine pH 7.0 (5.0-8.0) pH Units Ur Specific [place] 1.005 L (1.010-1.025) Urine Protein 100 H (Neg-Trace) mg/dL Urine Glucose (UA) Normal (Normal) mg/dL - ABG Interpretation ABG results: ABG ABG pH 7.43 pH Units (7.32-7.45) 11/26/17 08:52 ABG pCO2 41 mmHg (35-45) 11/26/17 08:52 ABG pO2 69 mmHg (85-104) L 11/26/17 08:52 ABG O2 Saturation 94 % (95-98) L 11/26/17 08:52 PT/INR, D-dimer PT 14.9 Seconds (9.4-12.1) H 11/24/17 05:47 - Impressions Impressions Echocardiogram 11/24/17 04:22 Impressions: Frequent atrial ectopy. LVEF 65%. Indeterminate diastolic dysfunction. Normal right ventricular structure and function. Mild-moderate mitral regurgitation. Mild-moderate tricuspid regurgitation. Moderate pulmonary hypertension. Left Ventricular Wall Motion: Rest Echo Findings All wall segments showed normal motion. Findings: Study Quality * Technically adequate exam. ECG Findings * Sinus tachycardia. Left Ventricle * LVEF 65%. * Normal LV chamber size, wall thickness and function. * Indeterminate diastolic dysfunction. Valsalva was not performed. Right Ventricle * Normal right ventricular structure and function. Left Atrium * Severely dilated left atrium. Right Atrium * Normal right atrial size. Mitral Valve * Normal mitral valve structure. * No mitral stenosis. * Mild mitral annular calcification * Mild-moderate mitral regurgitation. Aortic Valve * No aortic regurgitation. * Aortic valve not well visualized. * No aortic stenosis. Tricuspid Valve * Normal tricuspid valve structure. * Mild-moderate tricuspid regurgitation. * Estimated RA pressure is 3 mmHg. * Estimated RVSP is 53 mmHg. * Moderate pulmonary hypertension. Pulmonic Valve * Pulmonic valve is not well visualized. * No pulmonic stenosis. * Trace pulmonic regurgitation. Pulmonary Artery * Pulmonary artery not well visualized. Aorta * Not well visualized. Pericardium * There is no pericardial effusion present. Interatrial Septum * No evidence of PFO by color Doppler. IVC * Normal IVC dimensions and inspiratory collapse. Chest X-Ray 11/26/17 08:11 IMPRESSION: 1. A 2.5 cm nodule in the left lung. Further evaluation with chest CT is recommended as malignancy is not excluded. 2. Mild CHF. D/ / 11/26/2017 08:34:32 Quincy Baker MD / cristopher Interpreting Provider: Quincy Baker MD - VTE Documentation of Mechanical Device: Graduated compression elastic hosiery Consult Discharge Plan - Plan Referrals: Ramy Tellez DO [Primary Care Provider] - <Kayden Mcallister P - Last Filed: 11/26/17 18:20> Date of Encounter: 11/26/17 - Constitutional Vitals: Temp Pulse Resp BP Pulse Ox 98.8 F 82 18 131/62 95 11/26/17 15:31 11/26/17 15:31 11/26/17 15:31 11/26/17 15:31 11/26/17 15:31 Internal Medicine: Result - Labs CBC & Chem 7: 11/26/17 04:04 11/26/17 04:04 Labs: Short CBC 11/26/17 Range/Units 04:04 WBC 18.5 H (4.3-11.1) K/mcL Hgb 12.0 D (11.5-15.4) g/dL Hct 35.1 L (35.3-44.9) % Plt Count 336 (140-400) K/mcL Neutrophils # 15.7 H (1.6-8.9) K/mcL BMP 11/26/17 04:04 Sodium 124 L Potassium 6.0 H D Chloride 91 L Carbon Dioxide 23 BUN 28 H Creatinine 1.34 H Glucose 169 H Calcium 9.3 Cardiac Enzymes 01/30/18 01/31/18 Range/Units 21:39 04:04 Troponin I 0.44 H* 0.46 H* (< 0.04) ng/mL Liver Function 11/26/17 11/26/17 Range/Units 04:04 09:55 Total Bilirubin 0.8 0.7 (0.3-1.0) mg/dL Direct Bilirubin 0.2 (0.0-0.2) mg/dL AST 160 H 111 H (13-39) Units/L ALT 65 H 55 H (7-52) Units/L Alkaline Phosphatase 69 60 (34-104) Units/L Albumin 3.6 3.3 L (3.5-5.7) g/dL - ABG Interpretation ABG results: ABG ABG pH 7.43 pH Units (7.32-7.45) 11/26/17 08:52 ABG pCO2 41 mmHg (35-45) 11/26/17 08:52 ABG pO2 69 mmHg (85-104) L 11/26/17 08:52 ABG O2 Saturation 94 % (95-98) L 11/26/17 08:52 PT/INR, D-dimer PT 12.2 Seconds (9.4-12.1) H 11/26/17 09:55 - Impressions Impressions Chest X-Ray 11/26/17 08:11 IMPRESSION: 1. 2.5 cm nodule in the left lung. Further evaluation with chest CT is recommended as malignancy is not excluded. 2. Mild CHF. D/ / 11/26/2017 08:34:32 Quincy Baker MD / cristopher Interpreting Provider: Quincy Baker MD Abdomen/Pelvis CT 11/26/17 09:25 IMPRESSION: Multifocal airspace opacities are most suspicious for pneumonia or aspiration, the latter being slightly favored given tracheal bronchial secretions and esophageal features suggesting dysmotility and/or reflux. Recommend follow-up imaging in 6-8 weeks to ensure resolution. Features suggesting generalized volume overload, including small bilateral pleural effusions, probable pulmonary edema and mild soft tissue anasarca. Heavy atherosclerotic calcifications throughout the coronary arteries and thoracoabdominal aorta. 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 11 x 6 mm indeterminate nodule in the right breast soft tissues. Recommend correlation with physical exam, breast mammography and ultrasound if not already performed. The findings were sent to the Radiology Results Communication [facility] at 11:14 am on 11/26/2017to be communicated to a licensed caregiver. D/ / 11/26/2017 11:20:03 Wilian Mendez / leidy Interpreting Provider: Wilian Mendez Chest CT 11/26/17 09:25 IMPRESSION: Multifocal airspace opacities are most suspicious for pneumonia or aspiration, the latter being slightly favored given tracheal bronchial secretions and esophageal features suggesting dysmotility and/or reflux. Recommend follow-up imaging in 6-8 weeks to ensure resolution. Features suggesting generalized volume overload, including small bilateral pleural effusions, probable pulmonary edema and mild soft tissue anasarca. Heavy atherosclerotic calcifications throughout the coronary arteries and thoracoabdominal aorta. 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 11 x 6 mm indeterminate nodule in the right breast soft tissues. Recommend correlation with physical exam, breast mammography and ultrasound if not already performed. The findings were sent to the Radiology Results Communication Center at 11:14 am on 11/26/2017to be communicated to a licensed caregiver. D/ / 11/26/2017 11:20:03 Wilian forbes Interpreting Provider: Wilian Mendez - Attending Attestation I examined this patient and my medical decision-making was reviewed with the Resident Physician. I agree with the documented findings, disposition and treatment plan as described except to the extent set forth below. Noted that this morning patient was more drowsy and very difficult to arouse. She was on BiPAP. Etiology for above: Likely use of anxiolytic/opioid pain medications Stat ABG/chest x-ray/CT scan of the chest abdomen pelvis was done. Pulmonology consult Cardiology updated her regarding this progress. We will follow the recommendations from pulmonary/cardiology.
[2017-11-26 10:24] LABS: INR 1.1; Prothrombin Time 12.2 Seconds (9.4-12.1)
[2017-11-26 10:27] LABS: Activated Partial Thrombo Time 28.4 Seconds (26.0-36.0)
[2017-11-26 10:33] LABS: Albumin 3.3 g/dL (3.5-5.7); Albumin/Globulin Ratio 1.4 (1.1-2.2); Bilirubin,Direct 0.2 mg/dL (0.0-0.2); Bilirubin,Indirect 0.5 mg/dL (0.0-1.2); Bilirubin,Total 0.7 mg/dL (0.3-1.0); Globulin 2.3 g/dL (2.4-3.5); Total Protein 5.6 g/dL (6.4-8.9)
--- NOTE | 2017-11-26 11:24 | Pulmonology Consult Note ---
Date of Encounter: 11/26/17 Time of Encounter: 11:00 Assessment and Plan (1) Acute respiratory failure Current Visit: Yes Status: Acute Patient presented with acute hypoxic respiratory failure most likely due to acute on chronic diastolic heart failure with elevated BNP most likely triggered by multifocal pneumonia can be due to aspiration because of dilated esophagus with tracheobronchial secretions will need a full swallow evaluation when she is getting better . Will continue diuresis and broad spectrum antibiotics . Intermittent BIPAP . No need for ICU transfer for now if there is worsening of respiratory failure despite NIV will transfer to ICU at that point . Qualifiers: Qualified Code(s): J96.01 - Acute respiratory failure with hypoxia (2) Diastolic dysfunction with acute on chronic heart failure Current Visit: Yes Status: Acute Patient ECHO showed dilated LA atrium with indeterminate diastolic dysfunction with elevated BNP , CT chest showed bilateral scattered ground glass opacities consistent with pulmonary edema , to continue diuresis as tolerated according to primary team (3) Pneumonia Current Visit: Yes Status: Acute Patient has multifocal pneumonia with some tracheo bronchial secretions agree with broad spectrum antibiotics will do induced sputum with RT when she tolerates , when she is off BIPAP please try flutter valve Q6 to bring up the secretions . Will follow sputum and blood cultures and will descalate antibiotics accordingly . Will get a respiratory viral infections as sometime viral pneumonia can cause these kind of multifocal opacities . Qualifiers: Pneumonia type: aspiration pneumonia Laterality: unspecified laterality Qualified Code(s): J69.0 - Pneumonitis due to inhalation of food and vomit (4) Suspected chronic obstructive pulmonary disease based on initial evaluation Current Visit: Yes Status: Acute CT chest showed scattered areas of air trapping signs of early emphysema will need outpatient pulmonary after 6 weeks of discharge will get outpatient PFT and repeat CT for now on discharge when she is ready send with duoneb nebulizer. History of Present Illness Consult date: 11/26/17 Requesting physician: Kayden Mcallister Reason for consult: dyspnea, hypoxemia, other (Acute Hypoxic respiratory failure ) Chief complaint: Shortness of breadth over 2 weeks History of present illness: 77 year old female with past medical history significant for HTN , Diastolic heart failure with dilated LA atrium HFPEF is followed by cardiology as outpatient comes with 2 week of shortness of breadth was seen initially at [facility] because of patient mental status patient could not participate in history and ROS and full physical exam most of the history was got from the chart review it looks like patient presented with 2 weeks of shortness of breadth with cough and sputum production presented to the ER as NSTEMI in the setting of BILL initially cardiology was consulted , patient initially improved with diuresis now with altered mental status with shortness of breadth concerning for worsening acute hypoxic respiratory failure pulmonary was consulted for potential ICU transfer , patient denies much cough or sputum much of her history is not reliable because of the mental status . Past Med Surg Social Fam HX - Past Medical History Medical history: asthma, COPD, GERD, hyperlipidemia, hypertension, myocardial infarction, thyroid disease Psychiatric history: no psych history - Past Surgical History Surgical History: appendectomy, cholecystectomy, hysterectomy - Social History Smoking Status: Former smoker Smokeless Tobacco Status: No Alcohol use: none, rarely Drug use: none Medications and Allergies Albuterol Sulfate [Proair Hfa] 2 puff DAILY 11/24/17 [History] Allopurinol [Zyloprim] 300 mg PO DAILY 11/24/17 [History] Amlodipine Besylate [Amlodipine Besylate] 5 mg PO DAILY 11/24/17 [History] Aspirin [Lo-Dose Aspirin EC] 81 mg PO DAILY 11/24/17 [History] Cetirizine HCl [Zyrtec] 10 mg PO DAILY 11/24/17 [History] Ciprofloxacin [Cipro] 500 mg PO 11/24/17 [History] Furosemide [Lasix] 40 mg PO BID 11/24/17 [History] Levothyroxine [Synthroid] 100 mcg PO DAILY 11/24/17 [History] Lutein/Zeaxanthin [Lutein-Zeaxanthin 25-5 mg Sfgl] 15 mg PO DAILY 11/24/17 [ History] Metoprolol Tartrate [Lopressor] 50 mg PO DAILY 11/24/17 [History] Nitroglycerin [Nitrostat] 0.4 mg PO PRN PRN 11/24/17 [History] Potassium Chloride [Klor-Con 10] 10 mg PO DAILY 11/24/17 [History] Telmisartan [Micardis] 80 mg PO DAILY 11/24/17 [History] 3 Allergy/AdvReac Type Severity Reaction Status Date / Time [id number] Reductase AdvReac Muscle Pain Verified 06/26/17 13:18 Inhibitor [Statins] ROS unobtainable: due to mental status All Systems: A 10-system review of systems was performed and is negative for pertinent findings except as documented above in the HPI. Physical Examination Vital Signs: Vital Signs, Last 4 Hours Temp Pulse Resp BP Pulse Ox 11/26/17 07:53 17 99 11/26/17 07:45 101.6 F H 75 18 121/62 100 General appearance: other (mild respiratory distress) Auscultation: bilateral: diminished breath sounds (basilar diminished with some crackles ), other (scattered rales ) Cardiovascular: regular rate and rhythm unable to assess due to mental status Results - Laboratory Findings CBC and BMP: 11/26/17 04:04 11/26/17 04:04 ABG ABG pH 7.43 pH Units (7.32-7.45) 11/26/17 08:52 ABG pCO2 41 mmHg (35-45) 11/26/17 08:52 ABG pO2 69 mmHg (85-104) L 11/26/17 08:52 ABG O2 Saturation 94 % (95-98) L 11/26/17 08:52 PT/INR, D-dimer PT 12.2 Seconds (9.4-12.1) H 11/26/17 09:55 Abnormal lab findings: Abnormal lab results WBC 18.5 K/mcL (4.3-11.1) H 11/26/17 04:04 Hct 35.1 % (35.3-44.9) L 11/26/17 04:04 Neutrophils # 15.7 K/mcL (1.6-8.9) H 11/26/17 04:04 Monocytes # 1.6 K/mcL (0.0-1.3) H 11/26/17 04:04 PT 12.2 Seconds (9.4-12.1) H 11/26/17 09:55 ABG pO2 69 mmHg (85-104) L 11/26/17 08:52 ABG Total CO2 29 mEq/L (20-26) H 11/26/17 08:52 ABG O2 Saturation 94 % (95-98) L 11/26/17 08:52 Sodium 124 mEq/L (136-145) L 11/26/17 04:04 Potassium 6.0 mEq/L (3.5-5.1) H D 11/26/17 04:04 Chloride 91 mEq/L (98-107) L 11/26/17 04:04 BUN 28 mg/dL (8-23) H 11/26/17 04:04 Creatinine 1.34 mg/dL (0.60-1.20) H 11/26/17 04:04 Est GFR ( Amer) 46 (> 60) L 11/26/17 04:04 Est GFR (Non-Af Amer) 38 (> 60) L 11/26/17 04:04 Glucose 169 mg/dL (70-105) H 11/26/17 04:04 Calculated Osmolality 267 (280-300) L 11/26/17 04:04 AST 111 Units/L (13-39) H 11/26/17 09:55 ALT 55 Units/L (7-52) H 11/26/17 09:55 Troponin I 0.46 ng/mL (< 0.04) H* 11/26/17 04:04 B-Natriuretic Peptide 411 pg/mL (Less than 100) H 11/25/17 10:27 Serum Total Protein 5.6 g/dL (6.4-8.9) L 11/26/17 09:55 Albumin 3.3 g/dL (3.5-5.7) L 11/26/17 09:55 Globulin 2.3 g/dL (2.4-3.5) L 11/26/17 09:55 Ur Specific [place] 1.005 (1.010-1.025) L 11/25/17 15:56 Urine Protein 100 mg/dL (Neg-Trace) H 11/25/17 15:56 Urine Blood Moderate (Negative) H 11/25/17 15:56 Urine Microscopic RBC 3-5 per hpf (0-3) H 11/25/17 15:56 Ur Squamous Epith Cells Many per lpf (None-Few) H 11/25/17 15:56 - Clinical Findings Intake & Output: Intake & Output 11/25/17 11/26/17 11/26/17 23:59 07:59 15:59 Intake Total 120 / 120 Output Total 1600 / 1600 Balance 120 / 120 -1600 / -1600 Consult Discharge Plan - Plan Referrals: Ramy Tellez DO [Primary Care Provider] -
[2017-11-26] MEDS: amLODIPine 5 MG TABLET PO SCH (13:34)
[2017-11-26] MEDS: Metoprolol XL (24 HR) Succ 50 MG TAB.ER.24H PO SCH (13:34)
[2017-11-26] MEDS: Loratadine 10 MG TABLET PO SCH (13:34)
[2017-11-26] MEDS: Aspirin Enteric Coated 81 MG Tablet PO SCH (13:34)
--- NOTE | 2017-11-26 14:24 | Electrocardiograph Report ---
[place] [id number] Test Date: 2017-11-25 Pat Name: Elly Coleman Department: 111 Room: 2NE33 Gender: F Lead Painter: : 1940 Requested By: Kayden Mcallister Order Number: [id number] Reading MD: Ady Lozano DO Measurements Intervals [place] Rate: 98 P: 68 VA: 140 QRS: 33 QRSD: 94 T: 74 QT: 363 QTc: 419 Interpretive Statements SINUS RHYTHM WITH OCCASIONAL SUPRAVENTRICULAR PREMATURE COMPLEXES INCOMPLETE RIGHT BUNDLE BRANCH BLOCK NONSPECIFIC ST & T-WAVE ABNORMALITY Electronically Signed On 11-26-2017 14:22:39 EST by Ady Lozano DO
[2017-11-26] MEDS: Levofloxacin 750 MG/150 ML 750 MG/150 ML BAG IVPB SCH (17:03)
[2017-11-26] MEDS ORDERED: Saline Nasal Spray 44 ML BOTTLE NS PRN (20:09)
[2017-11-26 21:02] LABS: Calcium 9.2 mg/dL (8.6-10.3); Potassium 4.8 mEq/L (3.5-5.1)
[2017-11-26] MEDS: Furosemide 40 MG/4 ML VIAL IVP SCH (21:46)
[2017-11-26] MEDS: Melatonin 3 MG TABLET PO SCH (21:46)
[2017-11-27] MEDS: Ipratropium/Albuterol Neb 3 ML IH SCH ×7 (00:09→23:27)
[2017-11-27] MEDS: Magic Mouthwash 10 ML UD Cup PO SCH ×4 (00:43→16:16)
[2017-11-27] MEDS: Chloraseptic Spray 177 ML BOTTLE MM PRN ×2 (00:44→16:10)
[2017-11-27 05:07] LABS: Basophils % 0.1 %; Eosinophils # 0.3 K/mcL (0.0-0.6); Hematocrit 30.4 % (35.3-44.9); Immature Granulocytes % 0.4 % (0-4); Lymphocytes # 1.2 K/mcL (0.6-4.6); Lymphocytes % 12.2 %; Mean Corpuscular HGB Conc 33.9 g/dL (31.6-35.5); Mean Corpuscular Hemoglobin 30.7 pg (28.0-33.3); Mean Corpuscular Volume 90.7 fL (83.0-100.0); Mean Platelet Volume 9.8 fL (9.4-12.4); Monocytes # 1.1 K/mcL (0.0-1.3); Monocytes % 11.2 %; Neutrophils # 7.4 K/mcL (1.6-8.9); Platelet Count 330 K/mcL (140-400); Red Blood Count 3.35 M/mcL (3.82-4.97); Red Cell Distribution Width 13.6 % (11.5-14.5); Segmented Neutrophils % 73.1 %
[2017-11-27 05:11] LABS: Hemoglobin 10.3 g/dL (11.5-15.4)
[2017-11-27] MEDS: *HR* Heparin 5,000 UNIT/ML VIAL SQ SCH ×3 (06:10→20:21)
[2017-11-27 07:14] LABS: Adenovirus Not Detected (Not Detect); Bordetella Pertussis Not Detected (Not Detect); Chlamydophila pneumoniae Not Detected (Not Detect); Coronavirus 229E Not Detected (Not Detect); Coronavirus HKU1 Not Detected (Not Detect); Coronavirus NL63 Not Detected (Not Detect); Coronavirus OC43 Not Detected (Not Detect); Human Metapneumovirus Not Detected (Not Detect); Human Rhinovirus/Enterovirus Not Detected (Not Detect); Influenza A Subtype 2009 H1 Not Detected (Not Detect); Influenza A Untypeable Not Detected (Not Detect); Influenza B Not Detected (Not Detect); Mycoplasma pneumoniae Not Detected (Not Detect); Parainfluenza Virus 1 Not Detected (Not Detect); Parainfluenza Virus 2 Not Detected (Not Detect); Parainfluenza Virus 3 Not Detected (Not Detect); Parainfluenza Virus 4 Not Detected (Not Detect); Respiratory Syncytial Virus Not Detected (Not Detect)
[2017-11-27] MEDS ORDERED: Magic Mouthwash 10 ML UD Cup PO SCH (07:30)
[2017-11-27] MEDS ORDERED: Vancomycin 1,000 MG in D5% in Water 250 ML IVPB SCH (09:00)
[2017-11-27 09:30] LABS: Albumin 3.2 g/dL (3.5-5.7); Albumin/Globulin Ratio 1.3 (1.1-2.2); Bilirubin,Total 0.6 mg/dL (0.3-1.0); Calcium 9.3 mg/dL (8.6-10.3); Globulin 2.4 g/dL (2.4-3.5); Potassium 4.4 mEq/L (3.5-5.1); Total Protein 5.6 g/dL (6.4-8.9)
[2017-11-27] MEDS: Aspirin Enteric Coated 81 MG Tablet PO SCH (10:21)
[2017-11-27] MEDS: amLODIPine 5 MG TABLET PO SCH (10:21)
[2017-11-27] MEDS: Metoprolol XL (24 HR) Succ 50 MG TAB.ER.24H PO SCH (10:21)
[2017-11-27] MEDS: Furosemide 40 MG/4 ML VIAL IVP SCH ×2 (10:22→16:00)
[2017-11-27] MEDS: Loratadine 10 MG TABLET PO SCH (10:22)
--- NOTE | 2017-11-27 13:17 | Internal Med Progress Note ---
<Fabio Ramsay - Last Filed: 11/27/17 13:44> Date of Encounter: 11/27/17 Time of Encounter: 07:45 - Assessment and plan (1) Acute and chronic respiratory failure Current Visit: Yes Status: Acute Assessment and plan: Mrs. Coleman 77-year-old female admitted with diastolic heart failure exacerbation, fluid overload requiring nasal cannula oxygen decompensated respiratory tejeda overnight with worsening mental status requiring BiPAP. Mental status still altered patient is also having fevers of temp 101.6, elevated WBC. She currently meets SIRS criteria source suspect is potential pneumonia, will complete influenza swab PCR and possible chest CT as she has a fair amount of pulmonary edema which maybe masking a infiltration on chest x- ray. ABG: PH 7.43, PCO2 41, PO2 69, bicarbonate 27, oxygen saturation 94% - after 2 hours of BiPAP - Respiratory infectious panel, Legionella urine antigen, broad-spectrum antibiotics including vancomycin, Zosyn, Levaquin renally dosed 11/27: Respiratory status improved today, patient off BiPAP which she tolerated yesterday. She requires 4L NC and AOx3, sitting up eating breakfast. CT chest concerning for multifocal PNA. Respiratory exam with crackles bilateral Lung bases. Mixed picture of PNA superimposed on diastolic heart failure exacerbation. Plan: - Continue to wean oxygen requirements as tolerated. - Continue IV Lasix to treat volume overload - Continue Bains catheter for strict intake and output monitoring - Continue breathing treatments - Pulmonology following. Qualifiers: Qualified Code(s): J96.21 - Acute and chronic respiratory failure with hypoxia (2) Diastolic dysfunction with acute on chronic heart failure Current Visit: Yes Status: Acute Assessment and plan: Patient transferred from outside facility with BNP greater than 7000, pulmonary edema, patient complains of orthopnea and dyspnea with activity increased oxygen demand requiring nasal cannula oxygen at 4 L, clinical exam demonstrates findings of volume overload. Follow up BNP 411 Echocardiogram completed 11/24/2017 Impressions: Frequent atrial ectopy. LVEF 65%. Indeterminate diastolic dysfunction. Normal right ventricular structure and function. Mild-moderate mitral regurgitation. Mild-moderate tricuspid regurgitation. Moderate pulmonary hypertension. 11/27: respiratory status improved today, off BiPAP. Will continue diuresis and treatment of PNA. Plan: -Tolerating weaning of oxygen, continue to wean oxygen as tolerated. - IV Lasix 40 mg twice a day - Daily weights - 2 g sodium restriction, 1.5 L fluid restrictions - Optimize cardiac medications (3) HTN (hypertension) Current Visit: Yes Status: Acute Assessment and plan: Known history of hypertension currently on amlodipine 5 mg by mouth daily, metoprolol succinate 50 mg by mouth daily with blood pressure currently controlled. - Continue current regimen monitor. Qualifiers: Hypertension type: essential hypertension Qualified Code(s): I10 - Essential (primary) hypertension (4) S/P coronary artery stent placement Current Visit: Yes Status: Acute Assessment and plan: Patient has known coronary artery disease -[facility] 11/05/2013- RCA-ARY- moderate diffuse CAD, EF 55% -[facility] 01/13/2014- obtuse marginal ARY, circulflex ARY -[facility] 08/31/2014-moderate disease mid LAD 960-70%), medical treatment recommendations and risk factor modification -[facility] 06/16/2016- moderate stenosis distal LAD, no change from previous studies, EF 55% Patient follows with Dr. Carr in the outpatient setting. (5) Elevated troponin I level Current Visit: Yes Status: Acute Assessment and plan: Troponins 0.17, 0.12, 0.41 -> 0.46 - Significant history of ACS with multiple stents in the past. - Continue to optimize cardiac medications, patient has an allergy to Statins. 11/27: Discussed case with Dr. Lozano who believes elevated troponin levels are secondary to respiratory status. Recommendations per his note. (6) Hyponatremia Current Visit: Yes Status: Acute Assessment and plan: sodium 129 up from 124 yesterday. Improvement likely secondary to fluid restrictions, IV diuretics. - Continue to monitor in the setting of volume over load and continued diuretics. (7) Leukocytosis Current Visit: Yes Status: Acute Assessment and plan: Leukocytosis elevated WBC 10 today from 21 after initiation of antibiotics with multifocal PNA. Clinically improving - Continue to monitor with daily am labs. Qualifiers: Leukocytosis type: unspecified Qualified Code(s): D72.829 - Elevated white blood cell count, unspecified (8) Acute kidney failure Current Visit: Yes Status: Acute Assessment and plan: BILL: Stable at 1.42, no previous creatinines ( previous admissions) to compare. Possible Elevation in the setting of diastolic heart failure and acute illness and IV diuresis. - Avoid nephrotoxic medications are renally dose antibiotics - Monitor renal function daily Qualifiers: Qualified Code(s): N17.9 - Acute kidney failure, unspecified (9) DVT prophylaxis Current Visit: Yes Status: Acute Assessment and plan: Subcutaneous heparin. - Subjective Interval history: Mrs. Coleman is awake, alert and interactive sitting up in bed eating breakfast. She says her respiratory status improved compared to yesterday but continues to feel short of breath. She denies any CP, chest pressure, palpitations, Abd pain , N/V/D/C change in urination. She has no other complaints at this time. - Constitutional Vitals: Temp Pulse Resp BP Pulse Ox 98.3 F 77 16 137/65 95 11/27/17 12:00 11/27/17 12:00 11/27/17 12:00 11/27/17 12:11/27/17 12:00 General appearance: Present: cooperative, A&O X 3, pleasant, no acute distress, obese, answers questions appropriately Exam: General: Patient alert, awake, oriented 3, interactive, in no acute distress HEENT: Normocephalic, atraumatic, pupils equal reactive to light, , oral mucosa moist, neck supple trachea midline no palpable lymphadenopathy, no thyromegaly. Chest: Symmetric bilateral correlating with respiratory effort, effort nonlabored. Cardiac: Tachycardia, no bruits appreciated bilateral carotids, Radial pulses 2 + bilateral, posterior tibial and dorsal pedal pulses 2+ bilateral. Respiratory: Crackles appreciated in bilateral lung bases. Abdomen: Soft, nontender, positive bowel sounds, no palpable masses appreciated on examination Extremities: Symmetric bilateral, bilateral lower extremities with trace edema patient moving all 4 extremities spontaneously. Neurologic: No focal deficits appreciated on examination. Face symmetric, muscle strength symmetric bilateral upper and lower extremities. Internal Medicine: Result - Labs CBC & Chem 7: 11/27/17 04:35 11/27/17 04:35 Labs: Short CBC 11/27/17 Range/Units 04:35 WBC 10.1 (4.3-11.1) K/mcL Hgb 10.3 L D (11.5-15.4) g/dL Hct 30.4 L (35.3-44.9) % Plt Count 330 (140-400) K/mcL Neutrophils # 7.4 (1.6-8.9) K/mcL BMP 11/26/17 11/27/17 20:25 04:35 Sodium 124 L 129 L Potassium 4.8 4.4 Chloride 92 L 94 L Carbon Dioxide 26 22 L BUN 25 H 22 Creatinine 1.45 H 1.42 H Glucose 133 H 108 H Calcium 9.2 9.3 Liver Function 11/27/17 Range/Units 04:35 Total Bilirubin 0.6 (0.3-1.0) mg/dL AST 93 H (13-39) Units/L ALT 55 H (7-52) Units/L Alkaline Phosphatase 57 (34-104) Units/L Albumin 3.2 L (3.5-5.7) g/dL - ABG Interpretation ABG results: ABG ABG pH 7.43 pH Units (7.32-7.45) 11/26/17 08:52 ABG pCO2 41 mmHg (35-45) 11/26/17 08:52 ABG pO2 69 mmHg (85-104) L 11/26/17 08:52 ABG O2 Saturation 94 % (95-98) L 11/26/17 08:52 PT/INR, D-dimer PT 12.2 Seconds (9.4-12.1) H 11/26/17 09:55 - Impressions Impressions Chest X-Ray 11/26/17 08:11 IMPRESSION: 1. 2.5 cm nodule in the left lung. Further evaluation with chest CT is recommended as malignancy is not excluded. 2. Mild CHF. D/ / 11/26/2017 08:34:32 Quincy Baker MD / kaykay Interpreting Provider: Quincy Baker MD - VTE Documentation of Mechanical Device: Graduated compression elastic hosiery Consult Discharge Plan - Plan Referrals: Ramy Tellez DO [Primary Care Provider] - <Kayden Mcallister - Last Filed: 11/27/17 15:25> Date of Encounter: 11/27/17 - Constitutional Vitals: Temp Pulse Resp BP Pulse Ox 98.3 F 77 16 137/65 95 11/27/17 12:00 11/27/17 12:00 11/27/17 12:00 11/27/17 12:00 11/27/17 12:00 Internal Medicine: Result - Labs CBC & Chem 7: 11/27/17 04:35 11/27/17 04:35 Labs: Short CBC 11/27/17 Range/Units 04:35 WBC 10.1 (4.3-11.1) K/mcL Hgb 10.3 L D (11.5-15.4) g/dL Hct 30.4 L (35.3-44.9) % Plt Count 330 (140-400) K/mcL Neutrophils # 7.4 (1.6-8.9) K/mcL BMP 11/26/17 11/27/17 20:25 04:35 Sodium 124 L 129 L Potassium 4.8 4.4 Chloride 92 L 94 L Carbon Dioxide 26 22 L BUN 25 H 22 Creatinine 1.45 H 1.42 H Glucose 133 H 108 H Calcium 9.2 9.3 Liver Function 11/27/17 Range/Units 04:35 Total Bilirubin 0.6 (0.3-1.0) mg/dL AST 93 H (13-39) Units/L ALT 55 H (7-52) Units/L Alkaline Phosphatase 57 (34-104) Units/L Albumin 3.2 L (3.5-5.7) g/dL - ABG Interpretation ABG results: ABG ABG pH 7.43 pH Units (7.32-7.45) 11/26/17 08:52 ABG pCO2 41 mmHg (35-45) 11/26/17 08:52 ABG pO2 69 mmHg (85-104) L 11/26/17 08:52 ABG O2 Saturation 94 % (95-98) L 11/26/17 08:52 PT/INR, D-dimer PT 12.2 Seconds (9.4-12.1) H 11/26/17 09:55 - Attending Attestation I examined this patient and my medical decision-making was reviewed with the Resident Physician. I agree with the documented findings, disposition and treatment plan as described except to the extent set forth below. Agree with recommendations from cardiology/pulmonology. We will monitor her very closely.
[2017-11-27] MEDS: Melatonin 3 MG TABLET PO SCH (20:21)
[2017-11-28] MEDS: Ipratropium/Albuterol Neb 3 ML IH SCH ×6 (03:37→23:13)
[2017-11-28] MEDS: *HR* Heparin 5,000 UNIT/ML VIAL SQ SCH ×3 (04:22→20:43)
[2017-11-28 05:33] LABS: Basophils % 0.5 %; Eosinophils # 0.4 K/mcL (0.0-0.6); Eosinophils % 5.1 %; Hematocrit 33.9 % (35.3-44.9); Hemoglobin 10.9 g/dL (11.5-15.4); Immature Granulocytes % 0.5 % (0-4); Lymphocytes # 1.6 K/mcL (0.6-4.6); Lymphocytes % 18.6 %; Mean Corpuscular HGB Conc 32.2 g/dL (31.6-35.5); Mean Corpuscular Hemoglobin 30.9 pg (28.0-33.3); Mean Platelet Volume 9.7 fL (9.4-12.4); Monocytes # 0.9 K/mcL (0.0-1.3); Monocytes % 10.8 %; Neutrophils # 5.6 K/mcL (1.6-8.9); Platelet Count 304 K/mcL (140-400); Red Blood Count 3.53 M/mcL (3.82-4.97); Red Cell Distribution Width 13.8 % (11.5-14.5); Segmented Neutrophils % 64.5 %
[2017-11-28 06:10] LABS: Potassium 3.9 mEq/L (3.5-5.1)
[2017-11-28 06:11] LABS: Calcium 9.3 mg/dL (8.6-10.3)
--- NOTE | 2017-11-28 08:45 | Discharge Summary ---
<Fabio Ramsay - Last Filed: 11/28/17 14:19> Date of Encounter: 11/28/17 Time of Encounter: 08:45 - Discharge Diagnosis (1) Acute and chronic respiratory failure Priority: Primary Status: Acute Qualifiers: Qualified Code(s): J96.20 - Acute and chronic respiratory failure, unspecified whether with hypoxia or hypercapnia (2) Diastolic dysfunction with acute on chronic heart failure Priority: Primary Status: Acute (3) HTN (hypertension) Priority: Secondary Status: Acute Qualifiers: Hypertension type: essential hypertension Qualified Code(s): I10 - Essential (primary) hypertension (4) S/P coronary artery stent placement Priority: Primary Status: Acute (5) Elevated troponin I level Priority: Primary Status: Acute (6) Hyponatremia Priority: Primary Status: Acute (7) Leukocytosis Priority: Primary Status: Acute Qualifiers: Leukocytosis type: unspecified Qualified Code(s): D72.829 - Elevated white blood cell count, unspecified (8) Acute kidney failure Priority: Primary Status: Acute Qualifiers: Qualified Code(s): N17.9 - Acute kidney failure, unspecified (9) DVT prophylaxis Priority: Secondary Status: Acute - Discharge Medications Prescriptions: Levofloxacin [Levaquin] 750 mg PO Q48H 6 Days #3 tablet Home Medications: Albuterol Sulfate [Proair Hfa] 2 puff DAILY 11/24/17 [History] Allopurinol [Zyloprim] 300 mg PO DAILY 11/24/17 [History] Amlodipine Besylate 5 mg PO DAILY 11/24/17 [History] Aspirin [Lo-Dose Aspirin EC] 81 mg PO DAILY 11/24/17 [History] Cetirizine HCl [Zyrtec] 10 mg PO DAILY 11/24/17 [History] Furosemide [Lasix] 40 mg PO BID 11/24/17 [History] Levothyroxine [Synthroid] 100 mcg PO DAILY 11/24/17 [History] Lutein/Zeaxanthin [Lutein-Zeaxanthin 25-5 mg Sfgl] 15 mg PO DAILY 11/24/17 [ History] Metoprolol Tartrate [Lopressor] 50 mg PO DAILY 11/24/17 [History] Nitroglycerin [Nitrostat] 0.4 mg PO PRN PRN 11/24/17 [History] Potassium Chloride [Klor-Con 10] 10 mg PO DAILY 11/24/17 [History] Telmisartan [Micardis] 80 mg PO DAILY 11/24/17 [History] Levofloxacin [Levaquin] 750 mg PO Q48H 6 Days #3 tablet 11/28/17 [Rx] Allergies/Adverse Reactions: 3 Allergy/AdvReac Type Severity Reaction Status Date / Time Yyggavx-Jzd-Ozm Reductase AdvReac Muscle Pain Verified 06/26/17 13:18 Inhibitor [Statins] Procedures/tests Complete & Pending: Procedures Performed prior 72 hours Category Date Time Status CT abd pelvis wo no iv no oral [CT] Stat Cat Scan 11/26/17 09:[address] chest w/o contrast [CT chest wo con] [CT] Stat Cat Scan 11/26/17 09:25 Completed EKG [ECG 12 lead ECG] [ECG] Stat Y 11/25/17 16:55 Completed Date of admission: 11/25/17 18:17 Primary care physician: Ramy Tellez, Consults: 11/24/17 02:55 Consult to Nutrition [CONS] Routine Comment: Patient states appetite loss in past week Consulting Provider: NUTRITION Reason for Dietary Consult: Other Other:: Patient states appetite loss in past week 11/24/17 04:22 Consult to Cardiology [CONS] Routine Comment: Consulting Provider: Cardiology Sonal Reason for Consult: CHF/ Elevated troponin Call Completed: Yes 11/26/17 11:03 Consult to Pulmonology [CONS] Stat Consulting Provider: [facility] [place] Reason for Consult: decompensated respiratory status Call Completed: Yes 11/27/17 16:08 Consult to Physical Therapy [CONS] Routine Comment: Evaluate, develop and implement POC Reason for Consult: Possible rehab at discharge 11/27/17 16:09 Consult to Occupational Therapy [CONS] Routine Comment: Evaluate, develop and implement POC Reason for Consult: Possible rehab at discharge - Patient Status Disposition: Home, Self-Care Condition: Good Functional capacity at discharge: independent ambulation Overall status at discharge: patient is progressing back to baseline - Discharge Instructions Instructions: Heart Failure (DC) Follow Up With: Pato Carr DO [Partnered Physician] - (office will call patient at home with appointment date and time) Patricia Colmenares [Non-Partnered Physician] - 12/02/17 10:20 am Additional Instructions: 1. Follow-up with your primary care provider in the next 3-5 days 2. Take all prescriptions as prescribed, any concerns or questions contact her primary care provider. 3. Return to the emergency department if: Worsening respiratory status, chest pain chest pressure, lightheadedness dizziness fainting or any other concerning medical signs or symptoms. - Follow up with cardiology in the outpatient setting in the next week. - Diet and Activity Activity: increase activity as tolerated Diet: advance to your usual diet Interval History: Mrs. Coleman's 77-year-old female with significant past medical history of asthma , COPD, GERD, [place], stents 6, hypertension, hyperlipidemia, hypothyroidism was transferred from her hospital for roughly 2 weeks of increasing shortness of breath, elevated troponins, WBC 15, sodium 129, potassium 2.6. She was admitted to the telemetry unit and cardiology was consult that. Her steel burner is Dr. Carr in the outpatient center. She was started on IV Lasix , nasal cannula oxygen, EKG without any acute changes, cardiology consult for evaluation of the patient noted troponins given her significant history of stents. Overnight her WBC count elevated to 21 initially no source of infection identified, patient was afebrile and improving. The following evening she demonstrated respiratory decompensation requiring BiPAP, broad- spectrum antibiotics. She continued to improve and was found to have multifocal pneumonia with evaluation of CT of the chest. Pulmonology evaluated the patient in agreement. Cardiology suspected elevated troponin secondary to current respiratory problems with no need for initial LHC. She continued to improve clinically with weaning of nasal cannula oxygen. She continued to have occasional coughing but no sputum production. She is seen and evaluated on 11/2017 deemed stable for discharge with a prescription of Levaquin to complete antibiotic course, continued on home furosemide recommended follow-up with cardiology Dr. Carr and her PCP. Hospital course: Ms. Coleman is a 77 year old female - Time Spent with Patient Total time spent providing and/or coordinating discharge services: - Constitutional Vitals: Temp Pulse Resp BP Pulse Ox 97.9 F 68 17 147/68 100 11/28/17 07:08 11/28/17 07:08 11/28/17 07:59 11/28/17 07:08 11/28/17 07:59 General appearance: Present: cooperative, A&O X 3, pleasant, no acute distress, obese, answers questions appropriately Exam: General: Patient alert, awake, oriented 3, interactive, in no acute distress HEENT: Normocephalic, atraumatic, pupils equal reactive to light, , oral mucosa moist, neck supple trachea midline no palpable lymphadenopathy, no thyromegaly. Chest: Symmetric bilateral correlating with respiratory effort, effort nonlabored. Cardiac: RRR no bruits appreciated bilateral carotids, Radial pulses 2+ bilateral, posterior tibial and dorsal pedal pulses 2+ bilateral. Respiratory: Mild Crackles appreciated in bilateral lung bases. Abdomen: Soft, nontender, positive bowel sounds, no palpable masses appreciated on examination Extremities: Symmetric bilateral, bilateral lower extremities with trace edema patient moving all 4 extremities spontaneously. Neurologic: No focal deficits appreciated on examination. Face symmetric, muscle strength symmetric bilateral upper and lower extremities. - VTE Documentation of Mechanical Device: Graduated compression elastic hosiery <Kayden Mcallister P - Last Filed: 11/28/17 14:52> Date of Encounter: 11/28/17 Procedures/tests Complete & Pending: Procedures Performed prior 72 hours Category Date Time Status CT abd pelvis wo no iv no oral [CT] Stat Cat Scan 11/26/17 09:[address] chest w/o contrast [CT chest wo con] [CT] Stat Cat Scan 11/26/17 09:25 Completed EKG [ECG 12 lead ECG] [ECG] Stat Y 11/25/17 16:55 Completed Date of admission: 11/25/17 18:17 Primary care physician: Ramy Tellez, Consults: 11/24/17 02:55 Consult to Nutrition [CONS] Routine Comment: Patient states appetite loss in past week Consulting Provider: NUTRITION Reason for Dietary Consult: Other Other:: Patient states appetite loss in past week 11/24/17 04:22 Consult to Cardiology [CONS] Routine Comment: Consulting Provider: Cardiology Sonal Reason for Consult: CHF/ Elevated troponin Call Completed: Yes 11/26/17 11:03 Consult to Pulmonology [CONS] Stat Consulting Provider: Pulm [facility] [place] Reason for Consult: decompensated respiratory status Call Completed: Yes 11/27/17 16:08 Consult to Physical Therapy [CONS] Routine Comment: Evaluate, develop and implement POC Reason for Consult: Possible rehab at discharge 11/27/17 16:09 Consult to Occupational Therapy [CONS] Routine Comment: Evaluate, develop and implement POC Reason for Consult: Possible rehab at discharge Hospital course: Ms. Coleman is a 77 year old female - Time Spent with Patient Total time spent providing and/or coordinating discharge services: - Constitutional Vitals: Temp Pulse Resp BP Pulse Ox 98 F 69 16 161/66 99 11/28/17 11:10 11/28/17 11:10 11/28/17 11:10 11/28/17 11:10 11/28/17 11:10 - Attending Attestation I examined this patient and my medical decision-making was reviewed with the Resident Physician. I agree with the documented findings, disposition and treatment plan as described except to the extent set forth below. Patient will be going home today. Patient is back to her chronic state of her respiratory failure/heart failure.
[2017-11-28] MEDS ORDERED: Vancomycin 1,000 MG in D5% in Water 250 ML IVPB SCH (09:00)
[2017-11-28] MEDS: Metoprolol XL (24 HR) Succ 50 MG TAB.ER.24H PO SCH (10:09)
[2017-11-28] MEDS: Aspirin Enteric Coated 81 MG Tablet PO SCH (10:09)
[2017-11-28] MEDS: amLODIPine 5 MG TABLET PO SCH (10:09)
[2017-11-28] MEDS: Furosemide 40 MG/4 ML VIAL IVP SCH ×2 (10:10→18:03)
[2017-11-28] MEDS: Loratadine 10 MG TABLET PO SCH (10:10)
[2017-11-28] MEDS: Magic Mouthwash 10 ML UD Cup PO SCH ×3 (10:10→18:03)
[2017-11-28 10:50] LABS: Albumin/Globulin Ratio 1.1 (1.1-2.2); Bilirubin,Total 0.4 mg/dL (0.3-1.0); Globulin 2.7 g/dL (2.4-3.5); Total Protein 5.7 g/dL (6.4-8.9)
--- NOTE | 2017-11-28 12:00 | Physician Discharge Referral ---
<Fabio Ramsay - Last Filed: 11/28/17 11:57> Home Health/Hosp Referral Info Transfer to: Home Health Provider in Charge Post Discharge: PCP - Diagnosis (1) Acute and chronic respiratory failure Priority: Primary Status: Acute (2) Diastolic dysfunction with acute on chronic heart failure Priority: Primary Status: Acute (3) HTN (hypertension) Priority: Primary Status: Acute (4) S/P coronary artery stent placement Priority: Secondary Status: Acute (5) Elevated troponin I level Priority: Primary Status: Acute (6) Hyponatremia Priority: Primary Status: Acute (7) Leukocytosis Priority: Primary Status: Acute (8) Acute kidney failure Priority: Primary Status: Acute (9) DVT prophylaxis Priority: Secondary Status: Acute - Respiratory Orders Smoking Cessation: Smoking cessation has been advised. For more information, call the [employer] Tobacco Quit Line at 2-892-HNGH-NOW. - Diet/Nutrition Diet/Nutrition Orders: Regular - Activity Activity Orders: Ambulate - Services Needed Following services are medically necessary services: Home Health Aide, Physical Therapy, Occupational Therapy - Transfer Medications Prescriptions: Levofloxacin [Levaquin] 750 mg PO Q48H 6 Days #3 tablet Home Medications: Albuterol Sulfate [Proair Hfa] 2 puff DAILY 11/24/17 [History] Allopurinol [Zyloprim] 300 mg PO DAILY 11/24/17 [History] Amlodipine Besylate 5 mg PO DAILY 11/24/17 [History] Aspirin [Lo-Dose Aspirin EC] 81 mg PO DAILY 11/24/17 [History] Cetirizine HCl [Zyrtec] 10 mg PO DAILY 11/24/17 [History] Furosemide [Lasix] 40 mg PO BID 11/24/17 [History] Levothyroxine [Synthroid] 100 mcg PO DAILY 11/24/17 [History] Lutein/Zeaxanthin [Lutein-Zeaxanthin 25-5 mg Sfgl] 15 mg PO DAILY 11/24/17 [ History] Metoprolol Tartrate [Lopressor] 50 mg PO DAILY 11/24/17 [History] Nitroglycerin [Nitrostat] 0.4 mg PO PRN PRN 11/24/17 [History] Potassium Chloride [Klor-Con 10] 10 mg PO DAILY 11/24/17 [History] Telmisartan [Micardis] 80 mg PO DAILY 11/24/17 [History] Levofloxacin [Levaquin] 750 mg PO Q48H 6 Days #3 tablet 11/28/17 [Rx] Allergies/Adverse Reactions: 3 Allergy/AdvReac Type Severity Reaction Status Date / Time [id number]-Kkf Reductase AdvReac Muscle Pain Verified 06/26/17 13:18 Inhibitor [Statins] Certification: Further, I certify that my clinical findings support that this patient is homebound (i.e. absences from home require considerable and taxing effort and are for medical reasons or anabaptist services or infrequently or short duration when for other reasons) because: Homebound Reason: Patient requires assistance of a person or device to safely leave home, Severity of cardiac or pulmonary status limits activity tolerance Attestation: My signature below is to certify that this patient is under my care and that I, or nurse practitioner, or a physician's behavioral assistant working with me, has a face-to -face encounter with this patient. <Kayden Mcallister P - Last Filed: 11/28/17 12:18> - Respiratory Orders Smoking Cessation: Smoking cessation has been advised. For more information, call the [place] Tobacco Quit Line at 1-637-NHUD-NOW. Certification: Further, I certify that my clinical findings support that this patient is homebound (i.e. absences from home require considerable and taxing effort and are for medical reasons or anabaptist services or infrequently or short duration when for other reasons) because: Attestation: My signature below is to certify that this patient is under my care and that I, or nurse practitioner, or a physician's behavioral assistant working with me, has a face-to -face encounter with this patient.
[2017-11-28] MEDS ORDERED: levoFLOXacin 750 MG TABLET PO ONE (12:13)
[2017-11-28] MEDS: Levofloxacin 750 MG/150 ML 750 MG/150 ML BAG IVPB SCH (12:58)
[2017-11-28] MEDS ORDERED: Pantoprazole 40 MG VIAL IVP ONE (19:48)
[2017-11-28] MEDS: Melatonin 3 MG TABLET PO SCH (20:42)
[2017-11-29] MEDS ORDERED: Melatonin 3 MG TABLET PO ONE (00:29)
[2017-11-29] MEDS: Ipratropium/Albuterol Neb 3 ML IH SCH ×4 (03:43→15:45)
[2017-11-29] MEDS: *HR* Heparin 5,000 UNIT/ML VIAL SQ SCH ×2 (05:42→14:03)
[2017-11-29] MEDS ORDERED: traMADol 50 MG TABLET PO PRN (10:00)
[2017-11-29] MEDS ORDERED: GI Cocktail 40 ML EACH PO STA (10:02)
[2017-11-29] MEDS: Aspirin Enteric Coated 81 MG Tablet PO SCH (10:33)
[2017-11-29] MEDS: Metoprolol XL (24 HR) Succ 50 MG TAB.ER.24H PO SCH (10:33)
[2017-11-29] MEDS: Loratadine 10 MG TABLET PO SCH (10:33)
[2017-11-29] MEDS: amLODIPine 5 MG TABLET PO SCH (10:34)
[2017-11-29] MEDS: Magic Mouthwash 10 ML UD Cup PO SCH ×2 (10:34→14:03)
[2017-11-29] MEDS ORDERED: Furosemide 40 MG TABLET PO SCH (11:00)
[2017-11-29 14:59] VITALS: BP 147/64
--- NOTE | 2017-11-29 16:16 | Event Note ---
Date of Encounter: 11/29/17 Time of Encounter: 16:15 Patient seen and examined. Patient was discharged yesterday but she has a anxiety and she was not sure whether she will be able to go home or not Patient's was concerned regarding what if patient gets a chest pain and he was not sure for the plan. The plan and rescue medications were discussed with the patient yesterday during the discharge counseling. Today patient and her were comfortable to go home. I did not offer any services today and hence this note should not be charged. This note is not billable note
[2017-11-29] MEDS ORDERED: Aminoglycoside Consult 1 EACH MC ONE (16:32)
[2017-11-30] MEDS ORDERED: levoFLOXacin 750 MG TABLET PO SCH (13:30)
== END 2017-11-29 16:33 | disposition home or self-care (01) | DRG 291 ==
LOC: 2NENU → SUATTDRO 01:56
PROVIDERS: ADMIT Internal Medicine; ATTEND Internal Medicine